=== PATIENT | male | born 1965 | race African-American/Black ===

== ENCOUNTER 2017-09-19 23:31 | Emergency (ER) | payer OTHER ==
[~2017-09-19] VITALS: Ht 170.2 cm; Wt 83.9 kg
[~2017-09-19 23:31] MED LIST: BACTRIM DS TAB1 EAC1 ORAL; BENADRYL25 MG PO; EPIPEN0.3 MG/0.3 IM; PEPCID40 MG PO; PREDNISONE20 MG ORAL
[2017-09-20 00:03] VITALS: BP 135/84
[2017-09-20] MEDS ORDERED: Bacitracin Oint UD TOPIC ONE ×2 (00:36→00:45)
[2017-09-20] MEDS ORDERED: Bactrim-DS 1 tab ORAL ONE (00:45)
[2017-09-20 01:00] VITALS: BP 130/82
[2017-09-20] MEDS ORDERED: DOXYCYCLINE MO100 MG ORAL (01:01)
--- NOTE | 2017-09-20 01:02 | Emergency Room Report ---
History of Present Illness General Chief Complaint: General Complaint Source: Patient Present Illness [facility] This is a 51-year-old male with a history diabetes and chronic pain from a previous fall. He presents with a wound to his right donaldson this been there for about 2 months. On and off his been draining pus. He spoke with his brother who is a doctor who told to go to the ER because he could lose his leg. Patient has no pain. No nausea no vomiting. No fever or chills. Allergies: Coded Allergies: NO KNOWN DRUG ALLERGIES (Unverified Allergy, Unknown, 01/01/15) Patient History Past Medical History: see triage record, old chart reviewed Past Surgical History: other Pertinent Family History: none Social History: Denies: smoking Immunizations: other Reviewed Nursing Documentation: PMH: Agreed, PSxH: Agreed Nursing Documentation-PMH Hx Hypertension: Yes Review of Systems Eye: Denies: eye pain, blurred vision ENT: Denies: ear pain, nose congestion, throat swelling Respiratory: Denies: cough, shortness of breath Cardiovascular: Denies: chest pain, palpitations Gastrointestinal: Denies: abdominal pain, diarrhea, nausea, vomiting Musculoskeletal: Denies: back pain, joint pain Skin: Denies: rash Neurological: Denies: headache, numbness Endocrine: Denies: increased thirst, increased urine Hematologic/Lymphatic: Denies: easy bruising All Other Systems: negative except mentioned in HPI Physical Exam Vital Signs Date Time Temp Pulse Resp B/P (MAP) Pulse Ox O2 Delivery O2 Flow Rate FiO2 09/19/17 23:40 98.2 101 20 141/86 99 Room Air 98.2 vitals normal Sp02 EP Interpretation: reviewed, normal General Appearance: well appearing, no apparent distress, alert Head: normocephalic, atraumatic Eyes: bilateral eye PERRL, bilateral eye EOMI ENT: hearing grossly normal, normal pharynx Neck: full range of motion, supple, no meningismus Respiratory: chest non-tender, lungs clear, normal breath sounds Cardiovascular #1: regular rate, rhythm, no murmur Gastrointestinal: normal bowel sounds, non tender, no mass, no organomegaly, no bruit, non-distended Musculoskeletal: back normal, gait/station normal, normal range of motion, other - Right lower extremity: Over the mid tibial region, there is an eschar measuring about 3 x 3 cm. Push on it there small amount of purulent discharge. No crepitance around the leg. No pain. No fever or chills. Neurologic: alert, oriented x3 Psychiatric: mood/affect normal Skin: warm/dry Procedures Incision and Drainage Incision and Drainage : Consent: Verbal Site: Right leg Blade Size: 11 I & D Procedure: betadine prep Anesthesia: 1% Lidocaine Volume Anesthetic (ccs): 5 Patient Tolerated: Well Complications: None Progress I cleaned with Betadine and then chlorhexidine. Local anesthetic 1% lidocaine around the wound. Using a Angelica forcep I lifted the eschar. He has good nice pinkish granulation tissue. On the lateral aspect a small amount of pus. I irrigated clean it. We'll address. Patient tolerated procedure without a problem. Medical Decision Making Diagnostic Impression: Primary Impression: Abscess ER Course Patient with ulceration to the right leg with secondary infection. This occurred 2 months ago when he bumped it. No evidence of deep infection. No evidence of necrotizing fasciitis. We'll discharge home with antibiotics Last Vital Signs Date Time Temp Pulse Resp B/P (MAP) Pulse Ox O2 Delivery O2 Flow Rate FiO2 09/20/17 00:03 98.1 78 19 135/84 98 Room Air 98.1 Status: improved Disposition: HOME, SELF-CARE Condition: Stable Scripts Doxycycline Monohydrate* (DOXYCYCLINE MONOHYDRATE*) 100 Mg Capsule 100 MG ORAL Q12H, #14 CAP 0 Refills Prov: GAVIOTA JORDAN M.D. 09/20/17 Additional Instructions: Followup your Dr. in 2-3 days for wound check. Return if symptom worsen. Keep Wound clean. GAVIOTA JORDAN M.D. Sep 20, 2017 01:02
[2017-09-20 01:05] VITALS: BP 130/82
== END 2017-09-20 01:05 | disposition home or self-care (01) ==
LOC: EMR 23:55
DX: L02.415 Cutaneous abscess of right lower limb (principal); I10 Essential (primary) hypertension
CPT/HCPCS: 10060; 87070; 87181; 87205; 99284

== ENCOUNTER → 2017-09-24 | Emergency (ER) | payer OTHER ==
[~2017-09-24] VITALS: Ht 162.6 cm; Wt 81.6 kg
[~2017-09-24] MED LIST changes: +ATORVASTATIN CA20 MG ORAL; +B/P med; +BACTRIM-DS1 EA ORAL; +CEPHALEXIN500 MG ORAL; +DOXYCYCLINE MO100 MG ORAL; +GABAPENTIN300 MG ORAL; +GLIMEPIRIDE4 MG ORAL; +METFORMIN HCL500 M1 ORAL; +ROXICODONE15 MG ORAL
[2017-09-24 21:55] VITALS: BP 152/88
[2017-09-24 22:07] VITALS: BP 152/88
== END | disposition left against medical advice (07) ==
LOC: EMR 22:04
DX: L02.415 Cutaneous abscess of right lower limb (principal); Z53.21 Procedure and treatment not carried out due to patient leaving prior to being seen by health care provider
CPT/HCPCS: 99281

== ENCOUNTER 2017-09-25 01:07 | Inpatient (IN) | payer OTHER ==
[~2017-09-25] VITALS: Ht 167.6 cm; Wt 81.6 kg
[~2017-09-25 01:07] MED LIST changes: -ATORVASTATIN CA20 MG ORAL; -B/P med; -BACTRIM-DS1 EA ORAL; -CEPHALEXIN500 MG ORAL; -GABAPENTIN300 MG ORAL; -GLIMEPIRIDE4 MG ORAL; -METFORMIN HCL500 M1 ORAL; -ROXICODONE15 MG ORAL
[2017-09-25 01:15] VITALS: BP 152/94
[2017-09-25] MEDS ORDERED: ROXICODONE15 MG ORAL (01:18)
[2017-09-25] MEDS ORDERED: GABAPENTIN300 MG ORAL (01:18)
[2017-09-25] MEDS ORDERED: ATORVASTATIN CA20 MG ORAL (01:18)
[2017-09-25] MEDS ORDERED: GLIMEPIRIDE4 MG ORAL (01:18)
[2017-09-25] MEDS ORDERED: METFORMIN HCL500 M1 ORAL (01:18)
[2017-09-25] MEDS ORDERED: cefTRIAXone 1 GM in NS 55 ML IVPB ONE (01:30)
[2017-09-25] MEDS ORDERED: Vancomycin 1.5gm/D5W 250ml 250 ML IVPB ONE (01:30)
--- NOTE | 2017-09-25 01:32 | Emergency Room Report ---
History of Present Illness General Chief Complaint: Skin Rash/Abscess Source: Patient Present Illness HPI 51-year-old male, history of diabetes, presenting with left leg pain and ulceration. Patient states that he hit it a week ago, started to have ulceration, redness. States that it was worse the last 3 days. States that he was seen in the emergency room, discharged with antibiotics, he has taken 2 days worth of antibiotics, but redness only seems to be getting worse. Denies any fever or chills no nausea vomiting diarrhea Allergies: Coded Allergies: NO KNOWN DRUG ALLERGIES (Unverified Allergy, Unknown, 01/01/15) Patient History Past Medical History: see triage record Past Surgical History: none Pertinent Family History: none Reviewed Nursing Documentation: PMH: Agreed, PSxH: Agreed Nursing Documentation-PMH Hx Hypertension: Yes Hx Diabetes: Yes Review of Systems All Other Systems: negative except mentioned in HPI Physical Exam Vital Signs Date Time Temp Pulse Resp B/P (MAP) Pulse Ox O2 Delivery O2 Flow Rate FiO2 09/25/17 01:12 97.8 110 18 152/94 98 Room Air 97.9 Sp02 EP Interpretation: reviewed, normal General Appearance: alert, GCS 15, non-toxic, mild distress Head: normocephalic, atraumatic Eyes: bilateral eye normal inspection, bilateral eye PERRL, bilateral eye EOMI ENT: normal ENT inspection, normal pharynx, normal voice, moist mucus membranes Neck: normal inspection, full range of motion, supple Respiratory: normal inspection, lungs clear, normal breath sounds, no respiratory distress, no retraction, no wheezing, speaking full sentences, chest symmetrical Cardiovascular #1: normal inspection, regular rate, rhythm, no edema, normal capillary refill Cardiovascular #2: 2+ radial (R), 2+ radial (L) Gastrointestinal: normal inspection, non tender, soft, non-distended, no guarding Genitourinary: no CVA tenderness Musculoskeletal: other - R anterior tib-fib with 3 x 3 cm ulceration, surrounded with 5 cm of erythema, tender to palpation, no crepitus noted Neurologic: normal inspection, alert, oriented x3, responsive, motor strength/ tone normal, sensory intact, normal gait, speech normal Psychiatric: normal inspection, judgement/insight normal, memory normal Skin: normal inspection, normal color, no rash, warm/dry, well hydrated, normal turgor Medical Decision Making Diagnostic Impression: Primary Impression: Cellulitis of right leg Additional Impression: Hyperglycemia ER Course 51-year-old male with left leg redness DDX: Cellulitis , failed outpatient treatment No crepitus / pain out of proportion / rapid spreading for concern for nec fasc Plan: Labs, Antibiotics Anticipate admission ER course: Patient received antibiotics for Cellulitis. Hyperglycemia not in DKA received IVF Disposition: Patient is to be admitted to [facility] Discussed with Dr Nicholson Please note that this Emergency Department Report was dictated using [employer] repairer technology software, occasionally this can lead to erroneous entry secondary to interpretation by the dictation equipment. EKG Diagnostic Results EP Interpretation: Yes Rate: normal Rhythm: NSR ST Segments: No acute changes ASA given to patient: No Laboratory Tests Test 09/25/17 01:20 09/25/17 02:00 White Blood Count 9.1 K/UL (4.8-10.8) Red Blood Count 5.46 M/UL (4.70-6.10) Hemoglobin 16.8 G/DL (14.2-18.0) Hematocrit 47.8 % (42.0-52.0) Mean Corpuscular Volume 87 FL (80-99) Mean Corpuscular Hemoglobin 30.8 PG (27.0-31.0) Mean Corpuscular Hemoglobin Concent 35.2 G/DL (32.0-36.0) Red Cell Distribution Width 12.3 % (11.6-14.8) Platelet Count 213 K/UL (150-450) Mean Platelet Volume 8.2 FL (6.5-10.1) Neutrophils (%) (Auto) 61.3 % (45.0-75.0) Lymphocytes (%) (Auto) 31.8 % (20.0-45.0) Monocytes (%) (Auto) 3.8 % (1.0-10.0) Eosinophils (%) (Auto) 2.1 % (0.0-3.0) Basophils (%) (Auto) 1.1 % (0.0-2.0) Sodium Level 133 MMOL/L (136-145) L Potassium Level 3.5 MMOL/L (3.5-5.1) Chloride Level 94 MMOL/L (98-107) L Carbon Dioxide Level 28 MMOL/L (21-32) Anion Gap 11 mmol/L (5-15) Blood Urea Nitrogen 8 mg/dL (7-18) Creatinine 1.0 MG/DL (0.55-1.30) Estimate Glomerular Filtration Rate > 60 mL/min (>60) Glucose Level 429 MG/DL (74-106) H Lactic Acid Level 3.70 mmol/L (0.66-2.22) H Calcium Level 9.6 MG/DL (8.5-10.1) Total Bilirubin 0.5 MG/DL (0.2-1.0) Aspartate Amino Transferase (AST) 21 U/L (15-37) Alanine Aminotransferase (ALT) 53 U/L (12-78) Alkaline Phosphatase 118 U/L (46-116) H Total Protein 8.3 G/DL (6.4-8.2) H Albumin 3.9 G/DL (3.4-5.0) Globulin 4.4 g/dL Albumin/Globulin Ratio 0.9 (1.0-2.7) L Urine Color Pale yellow Urine Appearance Clear Urine pH 5 (4.5-8.0) Urine Specific [place] 1.010 (1.005-1.035) Urine Protein Negative (NEGATIVE) Urine Glucose (UA) 4+ (NEGATIVE) H Urine Ketones Negative (NEGATIVE) Urine Occult Blood Negative (NEGATIVE) Urine Nitrite Negative (NEGATIVE) Urine Bilirubin Negative (NEGATIVE) Urine Urobilinogen Normal MG/DL (0.0-1.0) Urine Leukocyte Esterase Negative (NEGATIVE) Last Vital Signs Date Time Temp Pulse Resp B/P (MAP) Pulse Ox O2 Delivery O2 Flow Rate FiO2 09/25/17 01:12 97.8 110 18 152/94 98 Room Air 97.9 Disposition: ADMITTED INPATIENT Condition: Chato Villarreal M.D. Sep 25, 2017 01:32
[2017-09-25 01:52] LABS: BASOPHILS % (AUTO) 1.1 % (0.0-2.0); EOSINOPHILS % (AUTO) 2.1 % (0.0-3.0); HEMATOCRIT 47.8 % (42.0-52.0); HEMOGLOBIN 16.8 G/DL (14.2-18.0); LYMPHOCYTES % (AUTO) 31.8 % (20.0-45.0); MEAN CORPUSCULAR VOLUME 87 FL (80-99); MONOCYTES % (AUTO) 3.8 % (1.0-10.0); NEUTROPHILS % (AUTO) 61.3 % (45.0-75.0); PLATELET COUNT 213 K/UL (150-450); RED BLOOD COUNT 5.46 M/UL (4.70-6.10); RED CELL DISTRIBUTION WIDTH 12.3 % (11.6-14.8); WHITE BLOOD COUNT 9.1 K/UL (4.8-10.8)
[2017-09-25 02:00] LABS: ANION GAP 11 mmol/L (5-15); BLOOD UREA NITROGEN 8 mg/dL (7-18); CALCIUM 9.6 MG/DL (8.5-10.1); CARBON DIOXIDE 28 MMOL/L (21-32); CHLORIDE 94 MMOL/L (98-107); POTASSIUM 3.5 MMOL/L (3.5-5.1); SODIUM 133 MMOL/L (136-145)
[2017-09-25 02:05] LABS: ALANINE AMINOTRANSFERASE 53 U/L (12-78); ALBUMIN 3.9 G/DL (3.4-5.0); ALBUMIN/GLOBULIN RATIO 0.9 (1.0-2.7); ALKALINE PHOSPHATASE 118 U/L (46-116); ASPARTATE AMINO TRANSFERASE 21 U/L (15-37); BILIRUBIN,TOTAL 0.5 MG/DL (0.2-1.0)
[2017-09-25 02:17] LABS: APPEARANCE,URINE CLEAR; BILIRUBIN, URINE NEGATIVE (NEGATIVE); COLOR,URINE PALE YELLOW; GLUCOSE, URINE (UA) 4+ (NEGATIVE); KETONES,URINE NEGATIVE (NEGATIVE); LEUKOCYTE ESTERASE ,URINE NEGATIVE (NEGATIVE); NITRITE,URINE NEGATIVE (NEGATIVE); PH,URINE 5 (4.5-8.0); PROTEIN,URINE NEGATIVE (NEGATIVE); UROBILINOGEN,URINE NORMAL MG/DL (0.0-1.0)
[2017-09-25 03:20] VITALS: BP 136/83
[2017-09-25 04:42] VITALS: BP 164/92
[2017-09-25] MEDS ORDERED: B/P med (05:55)
[2017-09-25] MEDS ORDERED: oxyCODONE 15mg IR tab ORAL PRN (06:00)
[2017-09-25] MEDS ORDERED: Ampicillin/Sulbactam Sod 3 GM in NS 110 ML IVPB SCH (06:00)
[2017-09-25] MEDS: NovoLOG Insulin Flexpen SUBQ SCH ×3 (06:30→16:30)
[2017-09-25 08:00] VITALS: BP 128/82
[2017-09-25 08:13] LABS: CHOLESTEROL 221 MG/DL (< 200); HDL CHOLESTEROL 37 MG/DL (40-60); TRIGLYCERIDES 177 MG/DL (30-150)
[2017-09-25] MEDS: Heparin 5000 units/ml inj SUBQ SCH ×2 (09:00→09:05)
[2017-09-25] MEDS ORDERED: metFORMIN 500mg tab ORAL SCH (09:00)
[2017-09-25] MEDS ORDERED: Metoprolol 25mg tab ORAL SCH (09:00)
[2017-09-25] MEDS: Ampicillin/Sulbactam Sod 3 GM in NS 110 ML IVPB SCH ×2 (09:03→15:37)
--- NOTE | 2017-09-25 10:21 | Diagnostic Imaging Report ---
Indication: Chest pain Technique: One view of the chest Comparison: none Findings: Lungs and pleural spaces are clear. Heart size is normal. Impression: No acute process
--- NOTE | 2017-09-25 10:37 | History & Physical ---
History and Physical History & Physicial seen and examined. Dictated # ##[id number] Sheila Nicholson MD Sep 25, 2017 10:37
--- NOTE | 2017-09-25 10:41 | General Progress Note ---
Assessment/Plan Status: stable Assessment/Plan 1- R LE cellulitis 2- SIRS 3- Chronic pain 4- DM 5- Non compliance Plan: Ok medically to followup as o/p to optimse medication for Diabetes. Pending ID clearance Subjective ROS Limited/Unobtainable: No Constitutional: Reports: malaise, other - back pain Allergies: Coded Allergies: NO KNOWN DRUG ALLERGIES (Unverified Allergy, Unknown, 01/01/15) Objective Last 24 Hour Vital Signs Date Time Temp Pulse Resp B/P (MAP) Pulse Ox O2 Delivery O2 Flow Rate FiO2 09/25/17 09:04 91 128/82 09/25/17 08:00 97.1 91 19 128/82 95 97.1 09/25/17 04:42 98.2 87 20 164/92 97 98.2 09/25/17 04:40 Room Air 09/25/17 03:55 97.4 87 16 136/83 97 Room Air 97.4 09/25/17 03:20 97.4 87 16 136/83 97 Room Air 97.4 09/25/17 01:15 97.9 110 18 152/94 98 Room Air 97.9 09/25/17 01:12 97.8 110 18 152/94 98 Room Air 97.9 Intake and Output 09/24/17 09/25/17 19:00 07:00 Intake Total 295 ml Output Total 250 ml Balance 45 ml Intake Oral 240 ml IV Total 55 ml Output Urine Total 250 ml # Voids 2 Laboratory Tests 09/25/17 01:20: White Blood Count 9.1, Red Blood Count 5.46, Hemoglobin 16.8, Hematocrit 47.8, Mean Corpuscular Volume 87, Mean Corpuscular Hemoglobin 30.8, Mean Corpuscular Hemoglobin Concent 35.2, Red Cell Distribution Width 12.3, Platelet Count 213, Mean Platelet Volume 8.2, Neutrophils (%) (Auto) 61.3, Lymphocytes (%) (Auto) 31.8, Monocytes (%) (Auto) 3.8, Eosinophils (%) (Auto) 2.1, Basophils (%) (Auto ) 1.1, Sodium Level 133L, Potassium Level 3.5, Chloride Level 94L, Carbon Dioxide Level 28, Anion Gap 11, Blood Urea Nitrogen 8, Creatinine 1.0, Estimat Glomerular Filtration Rate > 60, Glucose Level 429H, Hemoglobin A1c 9.9H, Lactic Acid Level 3.70H, Calcium Level 9.6, Total Bilirubin 0.5, Aspartate Amino Transf (AST/SGOT) 21, Alanine Aminotransferase (ALT/SGPT) 53, Alkaline Phosphatase 118H, Total Protein 8.3H, Albumin 3.9, Globulin 4.4, Albumin/ Globulin Ratio 0.9L, Triglycerides Level 177H, Cholesterol Level 221H, LDL Cholesterol 160H, HDL Cholesterol 37L, Cholesterol/HDL Ratio 6.0H 09/25/17 02:00: Urine Color Pale yellow, Urine Appearance Clear, Urine pH 5, Urine Specific [place] 1.010, Urine Protein Negative, Urine Glucose (UA) 4+H, Urine Ketones Negative, Urine Occult Blood Negative, Urine Nitrite Negative, Urine Bilirubin Negative, Urine Urobilinogen Normal, Urine Leukocyte Esterase Negative 09/25/17 03:40: Lactic Acid Level 2.20 Height (Feet): 5 Height (Inches): 6.00 Weight (Pounds): 180 General Appearance: no apparent distress EENT: PERRL/EOMI Neck: supple Cardiovascular: normal rate Respiratory/Chest: lungs clear Abdomen: soft Extremities: other - RLE 1-2 plus 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
--- NOTE | 2017-09-25 10:59 | Consultation ---
Consult Note Consult Note ID DIC # [id number] NADEEM CARPIO M.D. Sep 25, 2017 10:59
[2017-09-25 11:48] VITALS: BP 136/83
[2017-09-25] MEDS ORDERED: Vancomycin 1.5 GM/D5W 250ML IVPB SCH (13:30)
[2017-09-25 15:50] VITALS: BP 148/85
[2017-09-25] MEDS ORDERED: BACTRIM-DS1 EA ORAL (17:13)
[2017-09-25] MEDS ORDERED: CEPHALEXIN500 MG ORAL (17:14)
--- NOTE | 2017-09-25 18:32 | History and Physical Report ---
DATE OF ADMISSION: 09/25/2017 SOURCE OF INFORMATION: Patient and EMR. HISTORY OF PRESENT ILLNESS: The patient is a 51-year-old male with a history of right leg cellulitis, chronic pain. The patient is status post hospitalization and discharge last week with a similar diagnosis. At the time of evaluation, the patient denies any fever or chills. The patient complains of increased swelling of the right lower extremity. Initial evaluation shows the patient is tachycardic with a normal WBC count. The patient denies any chest pain or shortness of breath. Denies any nausea or vomitus. Denies any severe pain. The patient reported that he has been taking narcotics as an outpatient. MEDICATIONS: Current hospital medications including, but not limited to, atorvastatin, doxycycline, famotidine, gabapentin, glimepiride, metformin, oxycodone, and prednisone. ALLERGIES: NKDA. FAMILY HISTORY: Reviewed and noncontributory. SOCIAL HISTORY: Positive for tobacco smoking at least for 42-axjc-pfo-year. However, denies history of illicit drug abuse or alcohol abuse. PHYSICAL EXAMINATION: VITAL SIGNS: Blood pressure 150/90, temperature 98.2, pulse oximetry 98% on room air, pulse rate 110, and respiratory rate 18. HEAD AND NECK: Atraumatic and normocephalic. CHEST: Clear to auscultation. HEART: S1 and S2. Regular rate and rhythm. ABDOMEN: Soft. No organomegaly. MUSCULOSKELETAL: Positive for 1+ to 2+ pitting edema in the right lower extremity. Minimal edema and warmness. NEUROLOGIC: The patient is awake, alert, and oriented x3. LABORATORY DATA: Labs dated 09/25/2017 shows WBC 9.1, hemoglobin 16.8, and platelets 213,000. Sodium 133, potassium 3.5, BUN 8, and creatinine 1. A1c 9.9. Liver function tests normal. LDL of 160. ASSESSMENT AND PLAN: 1. Systemic inflammatory response syndrome. 2. Right lower extremity cellulitis. 3. Diabetes type 2, uncontrolled. 4. Noncompliance with medication as the patient refuses taking any medication to control diabetes as an injection. 5. Hyperlipidemia. 6. Hypokalemia. 7. Hyponatremia. PLAN OF CARE: Infectious Disease consulted. We will continue with the empiric antibiotic regimen. The patient is advised regarding the potential complication of not taking the medications including but not limited to . However, he understood and still would not like to take any insulin medications. Sheila Nicholson M.D. DR: MARIA ELENA JOB#: [id number] CC:
--- NOTE | 2017-09-25 20:32 | Consultation ---
DATE OF CONSULTATION: 09/25/2017 INFECTIOUS DISEASES CONSULTATION CONSULTING PHYSICIAN: Pavan Priest M.D. REFERRING PHYSICIAN: Sheila Nicholson M.D. REASON FOR CONSULTATION: Evaluation of the patient for lower extremity cellulitis/wound infection, antibiotic management. HISTORY OF PRESENT ILLNESS: This is a 51-year-old male who came to the hospital due to pain and swelling of the left leg after the patient bumped his leg about a week ago and some ulcerations that resulted in some purulent discharge couple of days later. The patient was seen in the emergency room. Cultures were sent. It is growing coagulase-negative Staph and strep group B. The patient was given oral antibiotics, however, the patient did not improve and came to the hospital. The patient was started on IV antibiotics. Infectious Diseases consultation has been requested for further evaluation of the patient's antibiotic management. PAST MEDICAL HISTORY: 1. Hyperlipidemia. 2. Hypertension. 3. History of back injury and back pain. 4. Diabetes. MEDICATIONS: Unasyn and vancomycin. ALLERGIES: No known drug allergies. SOCIAL HISTORY: Negative for alcohol or drug abuse. The patient is smoker. FAMILY HISTORY: Not contributing. REVIEW OF SYSTEMS: A 10-point review was done and except what is mentioned above has been negative. PHYSICAL EXAMINATION: VITAL SIGNS: The patient is afebrile, blood pressure 136/83, pulse 84, and respiratory rate 18. HEENT: No pale conjunctivae. No icterus. NECK: No lymphadenopathy. CHEST: Clear. HEART: S1 and S2. ABDOMEN: Soft. EXTREMITIES: Left, the patient has ulceration above and mid leg. No significant purulent discharge. There is mild erythema around the margin of the ulcers. NEUROLOGIC: Awake and alert. SKIN: As mentioned above. LABORATORY AND DIAGNOSTIC DATA: White blood cell count on admission 14 and today is 9, hemoglobin 16 and platelets 213. UA unremarkable. BUN and creatinine are unremarkable. ALT and AST normal and alkaline phosphatase 118. X-ray of chest NAPD. Doppler of lower extremity, no DVT. ASSESSMENT: The patient is a 51-year-old male with left leg superficial abscess that has been drained with surrounding cellulitis. PLAN: The patient can be discharged on oral Keflex and Bactrim. The patient was given a week's recourse of above antibiotics. Thank you, Dr. Nicholson, for this consultation. From my standpoint, the patient can get discharge. Pavan Priest M.D. DR: LISA JOB#: [id number] CC:
--- NOTE | 2017-09-26 15:34 | Discharge Summary ---
Discharge Summary Hospital Course Date of Admission Sep 25, 2017 at 01:52 Date of Discharge Sep 25, 2017 at 18:00 Admitting Diagnosis cellulitis JASON Davies is a 51 year old male who was admitted on Sep 25, 2017 at 01:52 for Cellulitis Hospital Course [id number] Discharge Discharge Disposition Patient was discharged to Home (01) Discharge Diagnoses: Mariela Charles NP Sep 26, 2017 15:33
--- NOTE | 2017-09-27 02:30 | Discharge Summary 2 SIG ---
DATE OF ADMISSION: 09/25/2017 DATE OF DISCHARGE: 09/25/2017 AIR TOOL OPERATOR: Pavan Priest M.D. BRIEF HOSPITAL COURSE: The patient is a 51-year-old male with history of right leg cellulitis and chronic pain. The patient was status post hospitalization and was discharged last week with similar diagnosis. At the time of evaluation, the patient denied fever or chills and complained of increased swelling of the right lower extremity. Initial evaluation showed the patient was tachycardic with normal WBC count. Denied any chest pain or shortness of breath. The patient was admitted for right lower extremity cellulitis. The patient has type 2 diabetes, uncontrolled and admits to noncompliance with medication and refuses to take his injectables. He was seen by Dr. Priest. Culture was growing coagulase-negative staph and group B strep. Doppler of lower extremity was negative for DVT. The patient was cleared for discharge on p.o. antibiotics, Keflex and Bactrim. FINAL DIAGNOSES: 1. Cellulitis of left leg. 2. SIRS. 3. Diabetes, type 2, uncontrolled. 4. Noncompliance with medication. 5. Hyperlipidemia. 6. Hypokalemia. 7. Hyponatremia. DISPOSITION: The patient was discharged home. DISCHARGE MEDICATIONS: Refer to medication list. DISCHARGE INSTRUCTIONS: The patient was instructed on wound care and follow up with PCP in a week. Sheila Nicholson M.D. I have been assigned to dictate discharge summary on this account and I was not involved in the patient's management. Mariela Charles N.P. DR: ROSSANA JOB#: [id number] CC:
--- NOTE | 2017-09-28 15:37 | Cardiology Report ---
APPROVED REPORT EKG Measurement Heart [id number] Sinus tachycardia Left anterior fascicular block Septal infarct, age undetermined Cannot rule out Inferior infarct, age undetermined Abnormal ECG
--- NOTE | 2017-10-01 13:06 | Diagnostic Imaging Report ---
APPROVED REPORT CPT Code: 50621 Present Symptoms Comments: R/O DVT Right leg pain BILATERAL: Imaging reveals a patent deep venous system bilaterally. There is no evidence of thrombus within the femoral, popliteal or tibial segments. The greater saphenous veins are also within normal limits. Doppler indicates normal spontaneous flow within these segments.
== END 2017-09-25 18:00 | disposition home or self-care (01) | DRG 603 ==
LOC: EMR 01:34 → 4W 01:52 → EDBEDREQ 02:51
DX: L03.116 Cellulitis of left lower limb (principal); R65.10 Systemic inflammatory response syndrome (SIRS) of non-infectious origin without acute organ dysfunction; E87.1 Hypo-osmolality and hyponatremia; E11.65 Type 2 diabetes mellitus with hyperglycemia; Z91.14 Patient's other noncompliance with medication regimen; E78.5 Hyperlipidemia, unspecified; E87.6 Hypokalemia; Z79.84 Long term (current) use of oral hypoglycemic drugs; F17.200 Nicotine dependence, unspecified, uncomplicated; G89.29 Other chronic pain; M54.9 Dorsalgia, unspecified; Z88.1 Allergy status to other antibiotic agents; Z88.8 Allergy status to other drugs, medicaments and biological substances
CPT/HCPCS: 36415; 71045; 80053; 80061; 81003; 82962; 83036; 83605; 85025; 87040; 87070; 87081; 87181; 87205; 93005; 93970; 99285; J1815

== ENCOUNTER 2017-11-12 00:37 | Emergency (ER) | payer OTHER ==
[~2017-11-12] VITALS: Ht 170.2 cm; Wt 86.2 kg
[~2017-11-12 00:37] MED LIST changes: +ATORVASTATIN CA20 MG ORAL; +B/P med; +BACTRIM-DS1 EA ORAL; +CEPHALEXIN500 MG ORAL; +GABAPENTIN300 MG ORAL; +GLIMEPIRIDE4 MG ORAL; +METFORMIN HCL500 M1 ORAL; +ROXICODONE15 MG ORAL
[2017-11-12 00:45] VITALS: BP 146/84
[2017-11-12] MEDS ORDERED: Levofloxacin 500mg tab ORAL ONE (01:45)
[2017-11-12] MEDS ORDERED: LEVAQUIN500 MG ORAL (01:52)
--- NOTE | 2017-11-12 01:52 | Emergency Room Report ---
History of Present Illness General Chief Complaint: Skin Rash/Abscess Source: Patient Present Illness HPI This is a 52-year-old male with history of diabetes and high blood pressure. He had an ulcer with infection to his right tibial area for over a month now. He was treated with antibiotics at better now he has some redness and swelling. No drainage. No fever chills but no nausea no vomiting. Pain with palpation. Allergies: Coded Allergies: NO KNOWN DRUG ALLERGIES (Unverified Allergy, Unknown, 01/01/15) Patient History Past Medical History: see triage record, old chart reviewed, DM, HTN Past Surgical History: other Pertinent Family History: none Social History: Denies: smoking Immunizations: other Reviewed Nursing Documentation: PMH: Agreed; PSxH: Agreed Nursing Documentation-PMH Hx Cardiac Problems: Yes Hx Hypertension: Yes Hx Diabetes: Yes Review of Systems Eye: Denies: eye pain, blurred vision ENT: Denies: ear pain, nose congestion, throat swelling Respiratory: Denies: cough, shortness of breath Cardiovascular: Denies: chest pain, palpitations Gastrointestinal: Denies: abdominal pain, diarrhea, nausea, vomiting Musculoskeletal: Denies: back pain, joint pain Skin: Denies: rash Neurological: Denies: headache, numbness Endocrine: Denies: increased thirst, increased urine Hematologic/Lymphatic: Denies: easy bruising All Other Systems: negative except mentioned in HPI Physical Exam Vital Signs Date Time Temp Pulse Resp B/P (MAP) Pulse Ox O2 Delivery O2 Flow Rate FiO2 11/12/17 00:39 98.2 97 18 146/84 97 Room Air 98.2 vitals normal Sp02 EP Interpretation: reviewed, normal General Appearance: well appearing, no apparent distress, alert Head: normocephalic, atraumatic Eyes: bilateral eye PERRL, bilateral eye EOMI ENT: hearing grossly normal, normal pharynx Neck: full range of motion, supple, no meningismus Respiratory: chest non-tender, lungs clear, normal breath sounds Cardiovascular #1: regular rate, rhythm, no murmur Gastrointestinal: normal bowel sounds, non tender, no mass, no organomegaly, no bruit, non-distended Musculoskeletal: back normal, gait/station normal, normal range of motion, other - right lower leg: There is a 6 x 8 cm wound with eschar. There is surrounding erythema. There is no purulent discharge. Neurologic: alert, oriented x3 Psychiatric: mood/affect normal Skin: warm/dry Procedures Additional Procedure Procedure Narrative procedure: Wound debridement Indication: Leg ulcer, infected Description: I cleaned the area with and put a dressing with saline and hydrogen peroxide over His wound. Using a scalpel and medicinal plant picker, I remove the eschar and debris the necrotic tissue down to pain granulation tissue. Patient tolerated procedure without a problem. Medical Decision Making Diagnostic Impression: Primary Impression: Infected stasis ulcer of right lower extremity ER Course Patient with cellulitis from an infective ulcer from trauma that he bumped couple months ago. I debridement that and necrotic tissue. We'll treat with antibiotics. He grew out strep from the wound. No evidence of abscess that can be I and D. No necrotizing fasciitis. Last Vital Signs Date Time Temp Pulse Resp B/P (MAP) Pulse Ox O2 Delivery O2 Flow Rate FiO2 11/12/17 00:39 98.2 97 18 146/84 97 Room Air 98.2 Status: improved Disposition: HOME, SELF-CARE Condition: Stable Scripts Levofloxacin* (LEVAQUIN*) 500 Mg Tablet 500 MG ORAL DAILY, #10 TAB Prov: GAVIOTA JORDAN M.D. 11/12/17 Additional Instructions: Follow-up with your DrNorma in 7 days for recheck. Change wound dressing twice a day. Return if worse. GAVIOTA JORDAN M.D. Nov 12, 2017 01:52
[2017-11-12 02:00] VITALS: BP 146/84
== END 2017-11-12 02:00 | disposition home or self-care (01) ==
LOC: EMR 00:59
DX: I83.228 Varicose veins of left lower extremity with both ulcer of other part of lower extremity and inflammation (principal); L97.829 Non-pressure chronic ulcer of other part of left lower leg with unspecified severity; E11.9 Type 2 diabetes mellitus without complications; I10 Essential (primary) hypertension
CPT/HCPCS: 99284

== ENCOUNTER 2019-09-28 03:35 | Inpatient (IN) | payer OTHER ==
[2019-09-28] VITALS (9 sets, daily range): BP systolic 125–180; BP diastolic 77–105
[~2019-09-28] VITALS: Ht 170.2 cm; Wt 73.5 kg
[~2019-09-28 03:35] MED LIST changes: +LEVAQUIN500 MG ORAL
--- NOTE | 2019-09-28 03:50 | NUR ---
ED Nurse Note: Pt ambulated into ED from home complaining of 10/10 abdominal pain and pain in penis. Pt reports blood in urine with clots x 3 days and black loose stools x 3 weeks. Pt reports extreme pain during urination and reports having trouble emptying bladder. Awaiting ERMD at bedside. Pt aao x 4, BP elevated 173/81, HR 115. ERMD aware
--- NOTE | 2019-09-28 04:40 | NUR ---
ED Nurse Note: ERMD at bedside
--- NOTE | 2019-09-28 04:50 | NUR ---
ED Nurse Note: ERMD performed catheterization of bladder with jo and irrigation with sterile water. ERMD performed US of bladder. 1L of hematuria removed.
[2019-09-28] MEDS ORDERED: Omnipaque-300 100ml vial INJ PRN (05:45)
--- NOTE | 2019-09-28 06:00 | NUR ---
ED Nurse Note: CT called; pending CT
--- NOTE | 2019-09-28 06:13 | Emergency Room Report ---
History of Present Illness General Chief Complaint: Male Urogenital Problems Source: Patient Present Illness HPI Patient is a 53-year-old male presents after increased gross hematuria as well as lower abdominal pain. He reports having gradual onset of increased clotting with urination. He had been able to void for several hours. Denies taking any anticoagulation. He denies any prior history of prostate disease. Had not been on any antibiotics recently. He denies any recent catheterizations. Allergies: Coded Allergies: NO KNOWN DRUG ALLERGIES (Unverified Allergy, Unknown, 01/01/15) Patient History Past Medical History: see triage record Reviewed Nursing Documentation: PMH: Agreed; PSxH: Agreed Nursing Documentation-PMH Hx Cardiac Problems: Yes Hx Hypertension: Yes Hx Diabetes: Yes Review of Systems All Other Systems: negative except mentioned in HPI Physical Exam Vital Signs Date Time Temp Pulse Resp B/P (MAP) Pulse Ox O2 Delivery O2 Flow Rate FiO2 09/28/19 03:40 98.8 125 20 162/78 (106) 97 Room Air Sp02 EP Interpretation: reviewed, normal General Appearance: normal inspection, well appearing, no apparent distress, alert, GCS 15 Head: atraumatic ENT: normal ENT inspection, hearing grossly normal, normal voice Neck: normal inspection, full range of motion, supple, no bony tend Respiratory: normal inspection, lungs clear, normal breath sounds, no respiratory distress, no retraction, no wheezing Cardiovascular #1: regular rate, rhythm, no edema Gastrointestinal: normal inspection, normal bowel sounds, non tender, soft, no guarding, no hernia Genitourinary: no CVA tenderness, penis normal, other - Suprapubic bladder distention Musculoskeletal: normal inspection, back normal, normal range of motion Neurologic: alert, motor strength/tone normal, manager community outreach III-XII nml as tested, responsive, speech normal, normal inspection Psychiatric: normal inspection, judgement/insight normal, mood/affect normal Medical Decision Making Diagnostic Impression: Primary Impression: Hematuria ER Course Patient presented for hematuria. Differential diagnosis include was not limited to bladder cancer, hemorrhagic cystitis, renal cyst, coagulopathy, anemia among others. Because of complexity of patient's case laboratory tests and imaging studies were ordered. Laboratory testing showed some evidence of elevated white blood count. Patient was noted to have large amount of clots and initial total urinary obstruction. Espinal catheter was placed and was irrigated with some improvement in urine output. Dr. Erwin May was contacted for inpatient management due to panel physician. Dr. Reyes was contacted for urology consult. Laboratory Tests Test 09/28/19 05:54 09/28/19 06:26 09/28/19 18:20 09/28/19 19:50 White Blood Count 16.9 K/UL (4.8-10.8) H Red Blood Count 4.16 M/UL (4.70-6.10) L Hemoglobin 12.2 G/DL (14.2-18.0) L Hematocrit 34.7 % (42.0-52.0) L Mean Corpuscular Volume 83 FL (80-99) Mean Corpuscular Hemoglobin 29.2 PG (27.0-31.0) Mean Corpuscular Hemoglobin Concent 35.1 G/DL (32.0-36.0) Red Cell Distribution Width 14.7 % (11.6-14.8) Platelet Count 279 K/UL (150-450) Mean Platelet Volume 7.5 FL (6.5-10.1) Neutrophils (%) (Auto) 84.7 % (45.0-75.0) H Lymphocytes (%) (Auto) 8.2 % (20.0-45.0) L Monocytes (%) (Auto) 6.5 % (1.0-10.0) Eosinophils (%) (Auto) 0.0 % (0.0-3.0) Basophils (%) (Auto) 0.6 % (0.0-2.0) Differential Total Cells Counted 100 Neutrophils % (Manual) 89 % (45-75) H Lymphocytes % (Manual) 11 % (20-45) L Monocytes % (Manual) 0 % (1-10) L Eosinophils % (Manual) 0 % (0-3) Basophils % (Manual) 0 % (0-2) Band Neutrophils 0 % (0-8) Platelet Estimate Adequate Platelet Morphology Normal Red Blood Cell Morphology Anisocytosis 1+ Prothrombin Time 12.5 SEC (9.30-11.50) H 12.9 SEC (9.30-11.50) H Prothrombin Time INR 1.2 (0.9-1.1) H 1.2 (0.9-1.1) H Activated Partial Thromboplast Time 40 SEC (23-33) H Sodium Level 143 MMOL/L (136-145) Potassium Level 3.5 MMOL/L (3.5-5.1) Chloride Level 104 MMOL/L (98-107) Carbon Dioxide Level 26 MMOL/L (21-32) Anion Gap 13 mmol/L (5-15) Blood Urea Nitrogen 8 mg/dL (7-18) Creatinine 0.7 MG/DL (0.55-1.30) Estimate Glomerular Filtration Rate > 60 mL/min (>60) Glucose Level 140 MG/DL (74-106) H Calcium Level 8.8 MG/DL (8.5-10.1) Total Bilirubin 0.4 MG/DL (0.2-1.0) Aspartate Amino Transferase (AST) 18 U/L (15-37) Alanine Aminotransferase (ALT) 21 U/L (12-78) Alkaline Phosphatase 163 U/L (46-116) H Total Protein 7.5 G/DL (6.4-8.2) Albumin 3.0 G/DL (3.4-5.0) L Globulin 4.5 g/dL Albumin/Globulin Ratio 0.7 (1.0-2.7) L Urine Color Red Urine Appearance Very cloudy Urine pH 7 (4.5-8.0) Urine Specific [place] 1.010 (1.005-1.035) Urine Protein 4+ (NEGATIVE) H Urine Glucose (UA) Negative (NEGATIVE) Urine Ketones 1+ (NEGATIVE) H Urine Blood 5+ (NEGATIVE) H Urine Nitrite Negative (NEGATIVE) Urine Bilirubin Negative (NEGATIVE) Urine Urobilinogen Normal MG/DL (0.0-1.0) Urine Leukocyte Esterase Negative (NEGATIVE) Urine RBC Tntc /HPF (0 - 0) H Urine WBC 5-10 /HPF (0 - 0) H Urine Squamous Epithelial Cells Occasional /LPF Urine Bacteria Few /HPF (NONE) Lactic Acid Level 1.30 mmol/L (0.4-2.0) Ammonia < 10 umol/L (11-32) L Reticulocyte Count 1.9 % (0.5-2.0) Iron Level 14 ug/dL (50-175) L Total Iron Binding Capacity 218 ug/dL (250-450) L Percent Iron Saturation 6 % (15-50) L Unsaturated Iron Binding 204 ug/dL (112-346) Ferritin 177 NG/ML (8-388) Carcinoembryonic Antigen Pending CA 15-3 Antigen Pending CA 19-9 Antigen Pending Prostate Specific Antigen 0.39 ng/mL (0.13-4.0) Vitamin B12 Level 446 PG/ML (193-986) Thyroid Stimulating Hormone (TSH) 0.397 uiU/mL (0.358-3.740) Last Vital Signs Date Time Temp Pulse Resp B/P (MAP) Pulse Ox O2 Delivery O2 Flow Rate FiO2 09/28/19 03:40 98.8 125 20 162/78 (106) 97 Room Air Status: improved Disposition: ADMITTED INPATIENT Condition: Stable Referrals: NON PHYSICIAN (PCP) Leighton Lobo MD Sep 28, 2019 06:13
--- NOTE | 2019-09-28 06:15 | NUR ---
ED Nurse Note: blood work and urine obtained, sent to lab
[2019-09-28 07:05] LABS: ANION GAP 13 mmol/L (5-15); BLOOD UREA NITROGEN 8 mg/dL (7-18); CALCIUM 8.8 MG/DL (8.5-10.1); CARBON DIOXIDE 26 MMOL/L (21-32); CHLORIDE 104 MMOL/L (98-107); CREATININE 0.7 MG/DL (0.55-1.30); POTASSIUM 3.5 MMOL/L (3.5-5.1); SODIUM 143 MMOL/L (136-145)
[2019-09-28 07:08] LABS: ALANINE AMINOTRANSFERASE 21 U/L (12-78); ALBUMIN/GLOBULIN RATIO 0.7 (1.0-2.7); ALKALINE PHOSPHATASE 163 U/L (46-116); ASPARTATE AMINO TRANSFERASE 18 U/L (15-37); BILIRUBIN,TOTAL 0.4 MG/DL (0.2-1.0)
--- NOTE | 2019-09-28 07:10 | NUR ---
ED Nurse Note: Report given to JUSTINO Ross
[2019-09-28 07:13] LABS: BASOPHILS % (AUTO) 0.6 % (0.0-2.0); HEMATOCRIT 34.7 % (42.0-52.0); HEMOGLOBIN 12.2 G/DL (14.2-18.0); LYMPHOCYTES % (AUTO) 8.2 % (20.0-45.0); MEAN CORPUSCULAR VOLUME 83 FL (80-99); MONOCYTES % (AUTO) 6.5 % (1.0-10.0); NEUTROPHILS % (AUTO) 84.7 % (45.0-75.0); PLATELET COUNT 279 K/UL (150-450); RED BLOOD COUNT 4.16 M/UL (4.70-6.10); RED CELL DISTRIBUTION WIDTH 14.7 % (11.6-14.8); WHITE BLOOD COUNT 16.9 K/UL (4.8-10.8)
--- NOTE | 2019-09-28 07:15 | NUR ---
ED Nurse Note: Received pt on bed, VSS except elevated SBP of 179; NAD. Noted pt on going continuous bladder irrigation; collected 1000ml of reddish-like urine. Charge nurse at bedside.
[2019-09-28 07:26] LABS: INR 1.2 (0.9-1.1)
--- NOTE | 2019-09-28 07:28 | NUR ---
ED Nurse Note: Pt went on CT, on stable condition; accompanied by tech; bladder irrigation still on-going.
[2019-09-28 07:32] LABS: APPEARANCE,URINE VERY CLOUDY; BILIRUBIN, URINE NEGATIVE (NEGATIVE); COLOR,URINE RED; GLUCOSE, URINE (UA) NEGATIVE (NEGATIVE); KETONES,URINE 1+ (NEGATIVE); LEUKOCYTE ESTERASE ,URINE NEGATIVE (NEGATIVE); NITRITE,URINE NEGATIVE (NEGATIVE); PH,URINE 7 (4.5-8.0); PROTEIN,URINE 4+ (NEGATIVE); UROBILINOGEN,URINE NORMAL MG/DL (0.0-1.0)
--- NOTE | 2019-09-28 09:04 | Diagnostic Imaging Report ---
INDICATION: Abdominal pain TECHNIQUE: Continuous helical transaxial imaging of the abdomen and pelvis was obtained from the lung bases to the pubic symphysis during intravenous contrast administration. Coronal 2-D reformats were also obtained. Study obtained in a Siemens sensation [address] Automatic Exposure Control was utilized. Total Dose length Product (DLP): [address] Dose Index Volume (CTDIvol): 86.5 mGy COMPARISON: None FINDINGS: Lungs: Mild groundglass opacities are present at the lung bases nonspecific.. Liver: Unremarkable Gallbladder/biliary system: No gallstones are identified. There is no evidence of intrahepatic or extrahepatic biliary ductal dilatation. Spleen: Unremarkable Pancreas: Unremarkable Kidneys/Bladder: The left kidney is abnormal with heterogeneous enhancement and perinephric stranding. Findings are suspicious for pyelonephritis/bacterial nephritis. There is no hydronephrosis or evidence of nephrolithiasis. Small lymph nodes are seen in the retroperitoneum nonspecific.. The bladder is moderately distended. Espinal catheter is noted in good position. There is some thickening of the wall the bladder noted. Correlate for cystitis. Adrenal glands: Unremarkable Aorta/IVC: There is moderate calcification of the wall of aorta with mural thrombus. There is no aneurysm. Bowel: The appendix is normal. Bowel gas pattern is nonobstructive. Peritoneum: There is no free fluid. Bones: Unremarkable IMPRESSION: Suspected left pyelonephritis/bacterial nephritis. No abscess or evidence of obstructive nephropathy. Moderate to severe arterial vascular disease. Thickening of the wall the urinary bladder moderately distended. Consider cystitis. Espinal catheter in good position. Groundglass opacification of the lung bases nonspecific The CT scanner at [facility] is accredited by the [employer] and the scans are performed using dose optimization techniques as appropriate to a performed exam including Automatic Exposure control.
--- NOTE | 2019-09-28 09:48 | NUR ---
ED Nurse Note: Bladder irrigation was completed noted BP: 173/75. Reported to Dr. Garcia. Pt denies pain.
--- NOTE | 2019-09-28 10:10 | NUR ---
ED Nurse Note: After giving Hydralazine 0.5ml SBP went down to 155 but after rechecking after 5 mins, BP went up to 171/77. Pt denies pain/headache/dizziness.
--- NOTE | 2019-09-28 10:26 | NUR ---
ED Nurse Note: tylenol given as ordered. patient's BP noted to be 125/105. HR 108, denies any pain.
--- NOTE | 2019-09-28 12:44 | NUR ---
ED Nurse Note: Noted latest BP: 162/67, pt denies any painn/discomfort. Informed charge nurse.
--- NOTE | 2019-09-28 12:51 | NUR ---
TRANSFER TO FLOOR: Patient transferred to [facility] as ordered, per Dr. May. Report given to Michel BADILLO. Belongings and medications given to receiving nurse. Family and or S/O informed of transfer.
--- NOTE | 2019-09-28 13:15 | NUR ---
NURSE NOTES: Pt came up to unit via gurney w/belongings accounted for. Pt drowsy, A&Ox2-3, VSS except BP 170/80, and pt c/o 10/10 pain; will contact MD for admission orders. IV site intact/asymptomatic; skin intact; and Cristiano-Aid colored urine noted in F/C. Lastly, pt would like money from home stored in safe; will notify Nurse Tail Board Worker.
[2019-09-28] MEDS: HydrALAZINE 25mg tab ORAL PRN ×2 (14:35→20:41)
[2019-09-28] MEDS: Morphine Sulfate 2mg/ml Inj(IV/IM USE ONLY) IVP PRN (14:36)
[2019-09-28] MEDS: Heparin 5000 units/ml inj SUBQ SCH ×2 (14:37→21:07)
--- NOTE | 2019-09-28 16:24 | Consultation ---
History of Present Illness General Date patient seen: Sep 28, 2019 Time patient seen: 16:23 Chief Complaint: UTI Reason for Consultation: UTI , sepsis Present Illness HPI This is a 53-year-old male who came to the ED for gross hematuria as well as lower abdominal pain and chills, The patient was started on IV antibiotics. Infectious Diseases consultation has been requested for further evaluation of the patient's antibiotic management of UTI PAST MEDICAL HISTORY: 1. Hyperlipidemia. 2. Hypertension. 3. History of back injury and back pain. 4. Diabetes. MEDICATIONS: no AB Rx ALLERGIES: No known drug allergies. SOCIAL HISTORY: Negative for alcohol or drug abuse. The patient is smoker. FAMILY HISTORY: Not contributing. REVIEW OF SYSTEMS: A 10-point review was done and except what is mentioned above has been negative. Allergies: Coded Allergies: NO KNOWN DRUG ALLERGIES (Unverified Allergy, Unknown, 01/01/15) Medication History Scheduled Atorvastatin Calcium* (Atorvastatin Calcium*), 10 MG ORAL BEDTIME, (Reported) Gabapentin* (Gabapentin*), 300 MG ORAL BEDTIME, (Reported) Glimepiride* (Glimepiride*), 4 MG ORAL BEFORE BREAKFAST, (Reported) Levofloxacin* (Levaquin*), 500 MG ORAL DAILY Metformin Hcl* (Metformin Hcl*), 500 MG ORAL TWICE A DAY, (Reported) Patient History Healthcare decision maker Resuscitation status Full Code Advanced Directive on File Physical Exam General Appearance: lethargic Lines, tubes and drains: central line HEENT: atraumatic Neck: supple Respiratory/Chest: normal breath sounds Cardiovascular/Chest: normal rate Abdomen: non tender, soft Genitourinary/Rectal: jo Extremities: normal inspection Skin Exam: warm/dry Neurologic: no motor/sensory deficits Last 24 Hour Vital Signs Date Time Temp Pulse Resp B/P (MAP) Pulse Ox O2 Delivery O2 Flow Rate FiO2 09/28/19 16:00 106 162/85 (110) 09/28/19 15:45 97.1 109 18 171/80 (110) 97 09/28/19 15:19 Room Air 09/28/19 14:35 170/80 09/28/19 13:00 99.2 104 18 170/80 (110) 98 09/28/19 12:56 98.8 100 18 166/95 99 Room Air 09/28/19 11:51 181/77 09/28/19 11:14 98.8 102 18 178/77 99 Room Air 09/28/19 10:24 98.8 108 18 125/105 97 Room Air 09/28/19 10:22 173/75 09/28/19 09:51 173/75 09/28/19 06:56 98.8 104 18 164/80 97 Room Air 09/28/19 05:45 98.8 102 20 165/80 97 Room Air 09/28/19 03:50 98.8 115 20 173/81 97 Room Air 09/28/19 03:40 98.8 125 20 162/78 (106) 97 Room Air Intake and Output 09/27/19 09/28/19 19:00 07:00 Intake Total 0 ml Output Total 1000 ml Balance -1000 ml Intake Oral 0 ml Output Urine Total 1000 ml Laboratory Tests Test 09/28/19 05:54 09/28/19 06:26 White Blood Count 16.9 K/UL (4.8-10.8) H Red Blood Count 4.16 M/UL (4.70-6.10) L Hemoglobin 12.2 G/DL (14.2-18.0) L Hematocrit 34.7 % (42.0-52.0) L Mean Corpuscular Volume 83 FL (80-99) Mean Corpuscular Hemoglobin 29.2 PG (27.0-31.0) Mean Corpuscular Hemoglobin Concent 35.1 G/DL (32.0-36.0) Red Cell Distribution Width 14.7 % (11.6-14.8) Platelet Count 279 K/UL (150-450) Mean Platelet Volume 7.5 FL (6.5-10.1) Neutrophils (%) (Auto) 84.7 % (45.0-75.0) H Lymphocytes (%) (Auto) 8.2 % (20.0-45.0) L Monocytes (%) (Auto) 6.5 % (1.0-10.0) Eosinophils (%) (Auto) 0.0 % (0.0-3.0) Basophils (%) (Auto) 0.6 % (0.0-2.0) Prothrombin Time 12.5 SEC (9.30-11.50) H Prothromb Time International Ratio 1.2 (0.9-1.1) H Activated Partial Thromboplast Time 40 SEC (23-33) H Sodium Level 143 MMOL/L (136-145) Potassium Level 3.5 MMOL/L (3.5-5.1) Chloride Level 104 MMOL/L (98-107) Carbon Dioxide Level 26 MMOL/L (21-32) Anion Gap 13 mmol/L (5-15) Blood Urea Nitrogen 8 mg/dL (7-18) Creatinine 0.7 MG/DL (0.55-1.30) Estimat Glomerular Filtration Rate > 60 mL/min (>60) Glucose Level 140 MG/DL (74-106) H Calcium Level 8.8 MG/DL (8.5-10.1) Total Bilirubin 0.4 MG/DL (0.2-1.0) Aspartate Amino Transf (AST/SGOT) 18 U/L (15-37) Alanine Aminotransferase (ALT/SGPT) 21 U/L (12-78) Alkaline Phosphatase 163 U/L (46-116) H Total Protein 7.5 G/DL (6.4-8.2) Albumin 3.0 G/DL (3.4-5.0) L Globulin 4.5 g/dL Albumin/Globulin Ratio 0.7 (1.0-2.7) L Urine Color Red Urine Appearance Very cloudy Urine pH 7 (4.5-8.0) Urine Specific [place] 1.010 (1.005-1.035) Urine Protein 4+ (NEGATIVE) H Urine Glucose (UA) Negative (NEGATIVE) Urine Ketones 1+ (NEGATIVE) H Urine Blood 5+ (NEGATIVE) H Urine Nitrite Negative (NEGATIVE) Urine Bilirubin Negative (NEGATIVE) Urine Urobilinogen Normal MG/DL (0.0-1.0) Urine Leukocyte Esterase Negative (NEGATIVE) Urine RBC Tntc /HPF (0 - 0) H Urine WBC 5-10 /HPF (0 - 0) H Urine Squamous Epithelial Cells Occasional /LPF Urine Bacteria Few /HPF (NONE) Height (Feet): 5 Height (Inches): 7.00 Weight (Pounds): 180 Medications Current Medications Medications (Trade) Dose Ordered Sig/Leilani Route PRN Reason Start Time Stop Time Status Last Admin Dose Admin Atorvastatin Calcium (Lipitor) 10 mg BEDTIME ORAL 09/28/19 21:00 10/28/19 20:59 Dextrose (Dextrose 50%) 25 ml Q30M PRN IV Hypoglycemia 09/28/19 14:00 10/28/19 13:59 Dextrose (Dextrose 50%) 50 ml Q30M PRN IV Hypoglycemia 09/28/19 14:00 10/28/19 13:59 Gabapentin (Neurontin) 300 mg BEDTIME ORAL 09/28/19 21:00 10/28/19 20:59 Glimepiride (AmaryL) 4 mg BEFORE BREAKFAST ORAL 09/29/19 06:30 10/29/19 06:29 Heparin Sodium (Porcine) (Heparin 5000 units/ml) 5,000 units EVERY 8 HOURS SUBQ 09/28/19 14:00 10/28/19 13:59 09/28/19 14:37 Hydralazine HCl (Apresoline) 25 mg Q6H PRN ORAL SBP>160 mm Hg 09/28/19 14:00 10/28/19 13:59 09/28/19 14:35 Insulin Aspart (NovoLOG) BEFORE MEALS AND HS SUBQ 09/28/19 16:30 10/28/19 16:29 Iohexol (OMNIPAQUE-300 100ml) 100 ml NOW PRN INJ Radiology Procedure 09/28/19 05:45 09/30/19 05:34 Metformin HCl (Glucophage) 500 mg BIAC ORAL 09/28/19 16:30 10/28/19 16:29 Morphine Sulfate (Morphine Sulfate) 1 mg Q6H PRN IVP pain 09/28/19 14:00 10/05/19 13:59 09/28/19 14:36 Sodium Chloride 1,000 ml @ 100 mls/hr Q10H IV 09/28/19 14:12 09/29/19 10:11 09/28/19 14:34 Assessment/Plan Assessment/Plan: A: Sepsis Luekocytosis afebrile UTI - HU - CT: Suspected left pyelonephritis/bacterial nephritis. No abscess or evidence of obstructive nephropathy Hyperlipidemia. Hypertension. History of back injury and back pain. Diabetes. Pavan Priest MD Sep 28, 2019 16:24
[2019-09-28] MEDS: metFORMIN 500mg tab ORAL SCH (16:49)
[2019-09-28] MEDS: NovoLOG Insulin Flexpen SUBQ SCH ×2 (16:52→20:56)
--- NOTE | 2019-09-28 18:30 | Consultation ---
DATE OF CONSULTATION: 09/28/2019 UROLOGY CONSULTATION CONSULTING PHYSICIAN: Kimo Reyes M.D. ATTENDING/REFERRING PHYSICIAN: Erwin May D.O. CHIEF COMPLAINT/HISTORY OF PRESENT ILLNESS: I was asked by Dr. May to evaluate this very pleasant 53-year-old gentleman regarding history of gross hematuria and urinary retention in the setting of likely urinary tract infection. The patient has a history of diabetes who presented to the hospital with history of several hours of inability to urinate as well as some gross hematuria around the same time. A Espinal catheter was placed and gross hematuria was noted. Given the above, I was asked to evaluate the patient. PAST MEDICAL HISTORY: 1. Diabetes. 2. Hyperlipidemia. 3. Hypertension. 4. Chronic low back pain. MEDICATIONS: Please see chart for current medications administration details. Briefly, the patient is on Unasyn and vancomycin for antibiotic coverage. ALLERGIES: No known drug allergies. SOCIAL HISTORY: Notable for tobacco use. The patient does not drink or use drugs. FAMILY HISTORY: Noncontributory. REVIEW OF SYSTEMS: A 14-system review of systems was unremarkable outside of what is described above. PHYSICAL EXAMINATION: GENERAL: The patient is a middle-aged gentleman, awake, alert and oriented x4, pleasant, in no obvious distress. HEENT: NC/AT. EOMI. Oropharynx clear. NECK: Supple. Full range of motion. CHEST: Within normal limits. ABDOMEN: Soft, nontender, and nondistended. EXTREMITIES: Warm and well perfused. No cyanosis, clubbing, or edema. BACK: No CVA tenderness to percussion. NEUROLOGIC: Grossly nonfocal. GENITOURINARY: Reveals a Espinal catheter in place with bloody but clearing urine output. LABORATORY DATA: White blood cell count 16.9, hematocrit 34.7, and platelets 279,000. PT 12.5, INR 1.2, PTT 40. Sodium 143, potassium 3.5, chloride 104, bicarbonate 26, BUN 8, and creatinine 0.7. Glucose 140. Calcium 8.8. LFTs within normal limits. Alkaline phosphatase 163. Urinalysis, specific gravity 1.010, pH 7.0. Dip test is notable for 4+ protein, 1+ ketone, 5+ occult blood. Microanalysis with too numerous to count red and 5 to 10 white blood cells per high-power field and few bacteria seen. Urine culture is pending. DIAGNOSTIC IMAGING: CT scan of the abdomen and pelvis reveals an abnormal left kidney with heterogenous enhancement and perinephric stranding. Findings are suspicious for pyelonephritis or bacterial nephritis. There is no hydronephrosis or evidence of stones. The bladder is mildly distended. The Espinal catheter is in good position. Other findings as noted. ASSESSMENT AND PLAN: In summary, the patient is a 53-year-old gentleman with history of gross hematuria and urinary retention secondary to the same. A Espinal catheter was placed and he was found to have evidence of an elevated white blood cell count as well as findings consistent with possible left-sided pyelonephritis on CT scan. The urine culture is pending. The patient has been started on Unasyn and vancomycin for antibiotic coverage. I will continue the patient on antibiotics and keep his catheter in place for the time being. I will start him on some medication to try to improve his ability to empty his bladder. Once his urine has cleared from the hematuria, we can take out his catheter for a chance to urinate without it. The patient will eventually need outpatient cystoscopy to complete his workup or something to be done sooner if the urine fails to clear with these measures. Thank you for allowing me to participate in the care of this nice gentleman. Please do not hesitate to contact me with any questions that you may further have regarding his care. I will see him with you as needed. Kimo Reeys M.D. DR: CR JOB#: [id number] CC:
--- NOTE | 2019-09-28 18:45 | History and Physical Report ---
DATE OF ADMISSION: 09/28/2019 TIME SEEN: 1 p.m. CONSULTANTS: 1. Kimo Reyes M.D. 2. Pavan Priest M.D. 3. Dr. Lira. CHIEF COMPLAINT: Hematuria, urine retention, and abdominal pain. BRIEF HISTORY: This is a 53-year-old male, who presented with increased abdominal pain for a day. He had some hematuria, had some urine retention, came to [place], diagnosed with the above, admitted to medical floor. Currently, calm in bed, slight abdominal pain, no complaint. REVIEW OF SYSTEMS: No chest pain. No shortness of breath. No nausea, vomiting, or diarrhea. PAST MEDICAL HISTORY: Diabetes. PAST SURGICAL HISTORY: None. ALLERGIES: Denies. MEDICATIONS: Includes hydralazine, clonidine, and IV fluids. SOCIAL HISTORY: Positive smoking. No alcohol. No intravenous drug abuse. FAMILY HISTORY: Noncontributory. PHYSICAL EXAMINATION: GENERAL: Calm in bed, oriented x3, in no acute distress. VITAL SIGNS: Temperature is 99, pulse 104, respirations 18, and blood pressure 170/80. CARDIOVASCULAR: No murmur. LUNGS: Distant and clear. ABDOMEN: Bowel sound positive. Nontender. Nondistended. EXTREMITIES: Show no cyanosis or edema. NEUROLOGIC: The patient moves all extremities, slightly weak. LABORATORY AND DIAGNOSTIC DATA: Labs at this time show white count 16, H and H 12/34, and platelets 279,000. Glucose 140. Alkaline phosphatase 163. Albumin 3.0. INR is 1.2, PTT is 40. Urinalysis show 5+ blood, 1+ ketone, 4+ protein. ASSESSMENT: 1. Hematuria. 2. Urine retention. 3. . 4. Leukocytosis. 5. Anemia. 6. Malnutrition. 7. Diabetes. PLAN: 1. Blood sugar and pain control. 2. Dietary followup. 3. IV fluids. 4. Hematology, ID and Urology followup. Erwin May D.O. DR: VANCE JOB#: [id number] CC:
--- NOTE | 2019-09-28 19:07 | Consultation ---
History of Present Illness General Chief Complaint: Male Urogenital Problems Reason for Consultation: UTI , sepsis Present Illness Allergies: Coded Allergies: NO KNOWN DRUG ALLERGIES (Unverified Allergy, Unknown, 01/01/15) Medication History Scheduled Atorvastatin Calcium* (Atorvastatin Calcium*), 10 MG ORAL BEDTIME, (Reported) Gabapentin* (Gabapentin*), 300 MG ORAL BEDTIME, (Reported) Glimepiride* (Glimepiride*), 4 MG ORAL BEFORE BREAKFAST, (Reported) Levofloxacin* (Levaquin*), 500 MG ORAL DAILY Metformin Hcl* (Metformin Hcl*), 500 MG ORAL TWICE A DAY, (Reported) Patient History Healthcare decision maker Resuscitation status Full Code Advanced Directive on File Physical Exam Last 24 Hour Vital Signs Date Time Temp Pulse Resp B/P (MAP) Pulse Ox O2 Delivery O2 Flow Rate FiO2 09/28/19 18:29 164/71 09/28/19 16:00 106 162/85 (110) 09/28/19 15:45 97.1 109 18 171/80 (110) 97 09/28/19 15:19 Room Air 09/28/19 14:35 170/80 09/28/19 13:00 99.2 104 18 170/80 (110) 98 09/28/19 12:56 98.8 100 18 166/95 99 Room Air 09/28/19 11:51 181/77 09/28/19 11:14 98.8 102 18 178/77 99 Room Air 09/28/19 10:24 98.8 108 18 125/105 97 Room Air 09/28/19 10:22 173/75 09/28/19 09:51 173/75 09/28/19 06:56 98.8 104 18 164/80 97 Room Air 09/28/19 05:45 98.8 102 20 165/80 97 Room Air 09/28/19 03:50 98.8 115 20 173/81 97 Room Air 09/28/19 03:40 98.8 125 20 162/78 (106) 97 Room Air Intake and Output 09/27/19 09/28/19 19:00 07:00 Intake Total 0 ml Output Total 1000 ml Balance -1000 ml Intake Oral 0 ml Output Urine Total 1000 ml Laboratory Tests Test 09/28/19 05:54 09/28/19 06:26 09/28/19 18:20 White Blood Count 16.9 K/UL (4.8-10.8) H Red Blood Count 4.16 M/UL (4.70-6.10) L Hemoglobin 12.2 G/DL (14.2-18.0) L Hematocrit 34.7 % (42.0-52.0) L Mean Corpuscular Volume 83 FL (80-99) Mean Corpuscular Hemoglobin 29.2 PG (27.0-31.0) Mean Corpuscular Hemoglobin Concent 35.1 G/DL (32.0-36.0) Red Cell Distribution Width 14.7 % (11.6-14.8) Platelet Count 279 K/UL (150-450) Mean Platelet Volume 7.5 FL (6.5-10.1) Neutrophils (%) (Auto) 84.7 % (45.0-75.0) H Lymphocytes (%) (Auto) 8.2 % (20.0-45.0) L Monocytes (%) (Auto) 6.5 % (1.0-10.0) Eosinophils (%) (Auto) 0.0 % (0.0-3.0) Basophils (%) (Auto) 0.6 % (0.0-2.0) Prothrombin Time 12.5 SEC (9.30-11.50) H Prothromb Time International Ratio 1.2 (0.9-1.1) H Activated Partial Thromboplast Time 40 SEC (23-33) H Sodium Level 143 MMOL/L (136-145) Potassium Level 3.5 MMOL/L (3.5-5.1) Chloride Level 104 MMOL/L (98-107) Carbon Dioxide Level 26 MMOL/L (21-32) Anion Gap 13 mmol/L (5-15) Blood Urea Nitrogen 8 mg/dL (7-18) Creatinine 0.7 MG/DL (0.55-1.30) Estimat Glomerular Filtration Rate > 60 mL/min (>60) Glucose Level 140 MG/DL (74-106) H Calcium Level 8.8 MG/DL (8.5-10.1) Total Bilirubin 0.4 MG/DL (0.2-1.0) Aspartate Amino Transf (AST/SGOT) 18 U/L (15-37) Alanine Aminotransferase (ALT/SGPT) 21 U/L (12-78) Alkaline Phosphatase 163 U/L (46-116) H Total Protein 7.5 G/DL (6.4-8.2) Albumin 3.0 G/DL (3.4-5.0) L Globulin 4.5 g/dL Albumin/Globulin Ratio 0.7 (1.0-2.7) L Urine Color Red Urine Appearance Very cloudy Urine pH 7 (4.5-8.0) Urine Specific Sidell 1.010 (1.005-1.035) Urine Protein 4+ (NEGATIVE) H Urine Glucose (UA) Negative (NEGATIVE) Urine Ketones 1+ (NEGATIVE) H Urine Blood 5+ (NEGATIVE) H Urine Nitrite Negative (NEGATIVE) Urine Bilirubin Negative (NEGATIVE) Urine Urobilinogen Normal MG/DL (0.0-1.0) Urine Leukocyte Esterase Negative (NEGATIVE) Urine RBC Tntc /HPF (0 - 0) H Urine WBC 5-10 /HPF (0 - 0) H Urine Squamous Epithelial Cells Occasional /LPF Urine Bacteria Few /HPF (NONE) Lactic Acid Level Pending Ammonia < 10 umol/L (11-32) L Height (Feet): 5 Height (Inches): 7.00 Weight (Pounds): 180 Medications Current Medications Medications (Trade) Dose Ordered Sig/Leilani Route PRN Reason Start Time Stop Time Status Last Admin Dose Admin Atorvastatin Calcium (Lipitor) 10 mg BEDTIME ORAL 09/28/19 21:00 10/28/19 20:59 Ceftriaxone Sodium 2 gm/ Dextrose 55 ml @ 110 mls/hr DAILY@1800 IVPB 09/28/19 19:30 10/05/19 19:29 09/28/19 18:59 Clonidine HCl (Catapres Tab) 0.1 mg Q12H PRN ORAL SBP>160 mm Hg 09/28/19 18:15 10/28/19 18:14 09/28/19 18:29 Dextrose (Dextrose 50%) 25 ml Q30M PRN IV Hypoglycemia 09/28/19 14:00 10/28/19 13:59 Dextrose (Dextrose 50%) 50 ml Q30M PRN IV Hypoglycemia 09/28/19 14:00 10/28/19 13:59 Finasteride (Proscar) 5 mg QHS ORAL 09/28/19 21:00 10/28/19 20:59 Gabapentin (Neurontin) 300 mg BEDTIME ORAL 09/28/19 21:00 10/28/19 20:59 Glimepiride (AmaryL) 4 mg BEFORE BREAKFAST ORAL 09/29/19 06:30 10/29/19 06:29 Heparin Sodium (Porcine) (Heparin 5000 units/ml) 5,000 units EVERY 8 HOURS SUBQ 09/28/19 14:00 10/28/19 13:59 09/28/19 14:37 Hydralazine HCl (Apresoline) 25 mg Q6H PRN ORAL SBP>160 mm Hg 09/28/19 14:00 10/28/19 13:59 09/28/19 14:35 Insulin Aspart (NovoLOG) BEFORE MEALS AND HS SUBQ 09/28/19 16:30 10/28/19 16:29 09/28/19 16:52 Iohexol (OMNIPAQUE-300 100ml) 100 ml NOW PRN INJ Radiology Procedure 09/28/19 05:45 09/30/19 05:34 Metformin HCl (Glucophage) 500 mg BIAC ORAL 09/28/19 16:30 10/28/19 16:29 09/28/19 16:49 Morphine Sulfate (Morphine Sulfate) 1 mg Q6H PRN IVP pain 09/28/19 14:00 10/05/19 13:59 09/28/19 14:36 Sodium Chloride 1,000 ml @ 100 mls/hr Q10H IV 09/28/19 14:12 09/29/19 10:11 09/28/19 14:34 Tamsulosin HCl (Flomax) 0.4 mg BEDTIME ORAL 09/28/19 21:00 10/28/19 20:59 Assessment/Plan Assessment/Plan: Hematology Consultation Reason for Consultation: UTI , sepsis REQ : Erwin May RFC: Hematuria DOS: 09/28/19 ID This is a 53-year-old male who came to the ED for gross hematuria as well as lower abdominal pain and chills, The patient was started on IV antibiotics. Infectious Diseases consultation has been requested for further evaluation of the patient's antibiotic management of UTI Has been seen by uro and id, is on abx, with jo, labs noted, hgb 12 PAST MEDICAL HISTORY: 1. Hyperlipidemia. 2. Hypertension. 3. History of back injury and back pain. 4. Diabetes. MEDICATIONS: no AB Rx ALLERGIES: No known drug allergies. SOCIAL HISTORY: Negative for alcohol or drug abuse. The patient is smoker. FAMILY HISTORY: Not contributing. ROS (review of systems): Constitutional: No fever, no chills, no night sweats, no fatigue Skin: No rashes, lumps, itchiness, dryness HEENT: No PAYNE, ear ache, visual changes, double vision, nosebleeds Breasts: No lumps, pain, discharge Pulmonary: No cough, sputum, shortness of breath, coughing up blood Cardiovascular: No chest pain, tightness, palpitations, syncope, PND GI: No nausea, vomiting, diarrhea, melena, hematochezia, change in appetite, : No dysuria, frequency, urgency, + hematuria ++ dysuria Musculoskeletal: No joint swelling or muscle pain, trauma, back pain Neurologic: No dizziness, fainting, seizures, changes in smell or taste Psychiatric: No nervousness, stress, or depression, anxiety, hallucinations Endocrine: No weight change, heat or cold intolerance, tremor, insomnia Coded Allergies: NO KNOWN DRUG ALLERGIES (Unverified Allergy, Unknown, 01/01/15) Medication History Scheduled Atorvastatin Calcium* (Atorvastatin Calcium*), 10 MG ORAL BEDTIME, (Reported) Gabapentin* (Gabapentin*), 300 MG ORAL BEDTIME, (Reported) Glimepiride* (Glimepiride*), 4 MG ORAL BEFORE BREAKFAST, (Reported) Levofloxacin* (Levaquin*), 500 MG ORAL DAILY Metformin Hcl* (Metformin Hcl*), 500 MG ORAL TWICE A DAY, (Reported) Patient History Healthcare decision maker Resuscitation status Full Code Advanced Directive on File Physical Exam General Appearance: lethargic Lines, tubes and drains: central line HEENT: atraumatic Neck: supple Respiratory/Chest: normal breath sounds Cardiovascular/Chest: normal rate Abdomen: non tender, soft Genitourinary/Rectal: jo Extremities: normal inspection Skin Exam: warm/dry Neurologic: no motor/sensory deficits : ++ jo Labs: noted Imaging: noted Assessment/Plan: # Leukocytosis 2/2 Sepsisfrom uti --> for uti, continue on abx --> peripheral smear has been noted --> labs have been reviewed # Hematuria is likely related to UTI --> make sure to draw psa, dw rn --> r/o jo trauma # Suspected left pyelonephritis/bacterial nephritis. No abscess or evidence of obstructive nephropathy --> on abx # DM --> a1c goal <8% # HTN --> sbp goal 140 # Hyperlipidemia. --> statin as needed ROBINSON Keita and appreciate consultation Og Lira MD Sep 28, 2019 19:07
[2019-09-28] MEDS ORDERED: cefTRIAXone 2 GM in D5W 55 ML IVPB SCH (19:30)
--- NOTE | 2019-09-28 19:30 | NUR ---
HAND-OFF: Report given to JUSTINO Coe. Endorsed to please collect urine culture.
--- NOTE | 2019-09-28 19:52 | NUR ---
NURSES NOTE: Met pt in bed, A/OX2, denies pain or discomfort at this time. No outward s/s of distress noted. Breathing pattern is even and unlabored on RA. Espinal in place, draining to gravity. Urine bright red in color. IV site LH 20 gauge is patent, running iv fluids according to eMAR. All due meds will be given. Urine sample to be collected. Bed at lowest level, call light within reach. Pt will continue to be monitored.
[2019-09-28] MEDS: Tamsulosin 0.4mg cap ORAL SCH (20:41)
[2019-09-28 20:44] LABS: INR 1.2 (0.9-1.1)
[2019-09-28 21:07] LABS: FERRITIN 177 NG/ML (8-388)
[2019-09-28 21:22] LABS: % IRON SATURATION 6 % (15-50); IRON 14 ug/dL (50-175); TOTAL IRON BINDING CAPACITY 218 ug/dL (250-450)
[2019-09-29] VITALS: BP 177/78
[2019-09-29] MEDS: HydrALAZINE 25mg tab ORAL PRN ×2 (03:35→15:55)
[2019-09-29 04:00] VITALS: BP 180/79
[2019-09-29] MEDS: Glimepiride 1mg tab ORAL SCH (05:45)
[2019-09-29] MEDS: metFORMIN 500mg tab ORAL SCH ×2 (05:46→16:30)
[2019-09-29] MEDS: Heparin 5000 units/ml inj SUBQ SCH ×3 (05:46→21:45)
[2019-09-29] MEDS: NovoLOG Insulin Flexpen SUBQ SCH ×4 (06:30→21:00)
[2019-09-29 06:58] LABS: ANION GAP 10 mmol/L (5-15); BLOOD UREA NITROGEN 13 mg/dL (7-18); CALCIUM 8.8 MG/DL (8.5-10.1); CARBON DIOXIDE 27 MMOL/L (21-32); CHLORIDE 105 MMOL/L (98-107); CREATININE 0.6 MG/DL (0.55-1.30); HEMOGLOBIN 11.2 G/DL (14.2-18.0); MEAN CORPUSCULAR VOLUME 86 FL (80-99); PLATELET COUNT 251 K/UL (150-450); POTASSIUM 3.1 MMOL/L (3.5-5.1); RED BLOOD COUNT 3.96 M/UL (4.70-6.10); RED CELL DISTRIBUTION WIDTH 14.2 % (11.6-14.8); SODIUM 142 MMOL/L (136-145)
--- NOTE | 2019-09-29 07:50 | NUR ---
NURSE NOTES: WALKING ROUNDS DONE WITH OUTGOING RN. PATIENT AWAKE IN BED. STILL DISPLAYS SOME CONFUSION. AOX2-3 BUT PLEASANT . ABLE TO FOLLOW SIMPLE COMMANDS BUT RECALL IS POOR. DUFFY CATHETER PATENT AND SECURED TO LEFT THIGH. DISCUSSED PLAN OF CARE FOR THE DAY. ACKNOWLEDGED UNDERSTANDING. INSTRUCTED PATIENT TO USE CALL BUTTON WHEN IN NEED OF ASSISTANCE. RETURN DEMONSTRATION POOR. BED ALARM ON, PATIENT CLOSE TO NURSE'S STATION. BED IN LOW AND LOCKED POSITION. CALL LIGHT WITHIN REACH.
[2019-09-29 08:00] VITALS: BP 156/78
--- NOTE | 2019-09-29 08:07 | NUR ---
HAND OFF: Report given to JUSTINO Cardoza. New orders processed for elevated BP. Pt in stable condition.
--- NOTE | 2019-09-29 09:42 | General Progress Note ---
Assessment/Plan Problem List: (1) Urine retention ICD Codes: R33.9 - Retention of urine, unspecified SNOMED: 023472481 (2) Anemia ICD Codes: D64.9 - Anemia, unspecified SNOMED: 638153439 (3) Malnutrition ICD Codes: E46 - Unspecified protein-calorie malnutrition SNOMED: 05748085 (4) Leukocytosis ICD Codes: D72.829 - Elevated white blood cell count, unspecified SNOMED: 838762361, 517031434 (5) Hematuria ICD Codes: R31.9 - Hematuria, unspecified SNOMED: 27180589 Status: unchanged Assessment/Plan: pt diet abx uro f/u cbc bmp am Subjective Constitutional: Reports: weakness Allergies: Coded Allergies: NO KNOWN DRUG ALLERGIES (Unverified Allergy, Unknown, 01/01/15) All Systems: reviewed and negative except above Subjective sl abd pain Objective Last 24 Hour Vital Signs Date Time Temp Pulse Resp B/P (MAP) Pulse Ox O2 Delivery O2 Flow Rate FiO2 09/29/19 08:00 97.9 121 18 156/78 (104) 92 09/29/19 06:41 95 155/78 09/29/19 04:00 98.3 103 20 180/79 (112) 95 09/29/19 03:35 177/78 09/29/19 00:00 98.2 108 20 177/78 (111) 96 09/28/19 21:00 Room Air 09/28/19 20:41 180/85 09/28/19 20:00 98.4 106 17 180/85 (116) 96 09/28/19 18:29 164/71 09/28/19 16:00 106 162/85 (110) 09/28/19 15:45 97.1 109 18 171/80 (110) 97 09/28/19 15:19 Room Air 09/28/19 14:35 170/80 09/28/19 13:00 99.2 104 18 170/80 (110) 98 09/28/19 12:56 98.8 100 18 166/95 99 Room Air 09/28/19 11:51 181/77 09/28/19 11:14 98.8 102 18 178/77 99 Room Air 09/28/19 10:24 98.8 108 18 125/105 97 Room Air 09/28/19 10:22 173/75 2/25/20 09:51 173/75 Intake and Output 09/28/19 09/29/19 19:00 07:00 Intake Total 400 ml Output Total 3600 ml 875 ml Balance -3600 ml -475 ml IV Total 400 ml Output Urine Total 3600 ml 875 ml # Bowel Movements 1 1 Laboratory Tests 09/28/19 18:20: Lactic Acid Level 1.30, Ammonia < 10L 09/28/19 19:50: Reticulocyte Count 1.9, Prothrombin Time 12.9H, Prothromb Time International Ratio 1.2H, Iron Level 14L, Total Iron Binding Capacity 218L, Percent Iron Saturation 6L, Unsaturated Iron Binding 204, Ferritin 177, Carcinoembryonic Antigen [Pending], CA 15-3 Antigen [Pending], CA 19-9 Antigen [Pending], Prostate Specific Antigen 0.39, Vitamin B12 Level 446, Thyroid Stimulating Hormone (TSH) 0.397 09/29/19 04:50: White Blood Count 17.0H, Red Blood Count 3.96L, Hemoglobin 11.2L, Hematocrit 34.0L, Mean Corpuscular Volume 86, Mean Corpuscular Hemoglobin 28.2, Mean Corpuscular Hemoglobin Concent 32.9, Red Cell Distribution Width 14.2, Platelet Count 251, Mean Platelet Volume 7.2, Neutrophils (%) (Auto) , Lymphocytes (%) ( Auto) , Monocytes (%) (Auto) , Eosinophils (%) (Auto) , Basophils (%) (Auto) , Differential Total Cells Counted 100, Neutrophils % (Manual) 88H, Lymphocytes % (Manual) 7L, Monocytes % (Manual) 5, Eosinophils % (Manual) 0, Basophils % ( Manual) 0, Band Neutrophils 0, Platelet Estimate Adequate, Platelet Morphology Normal, Sodium Level 142, Potassium Level 3.1L, Chloride Level 105, Carbon Dioxide Level 27, Anion Gap 10, Blood Urea Nitrogen 13, Creatinine 0.6, Estimat Glomerular Filtration Rate > 60, Glucose Level 131H, Hemoglobin A1c 6.8H, Calcium Level 8.8 Height (Feet): 5 Height (Inches): 7.00 Weight (Pounds): 162 General Appearance: alert EENT: normal ENT inspection Neck: normal alignment Cardiovascular: normal peripheral pulses, normal rate, regular rhythm Respiratory/Chest: chest wall non-tender, lungs clear, normal breath sounds Abdomen: normal bowel sounds, non tender, soft Extremities: normal inspection Edema: no edema noted Arm (L), no edema noted Arm (R), no edema noted Leg (L), no edema noted Leg (R), no edema noted Pedal (L), no edema noted Pedal (R), no edema noted Generalized Neurologic: responsive, motor weakness Skin: normal pigmentation, warm/dry Erwin May DO Sep 29, 2019 09:42
--- NOTE | 2019-09-29 10:11 | Diagnostic Imaging Report ---
Indication: Headache Technique: Contiguous 5 mm thick transaxial imaging of the head obtained in a Siemens Sensation [address] scanner. Soft tissue and bone windows generated. Automatic Exposure Control was utilized. Total Dose length Product (DLP): 992.1mGycm CT Dose Index Volume (CTDIvol): 53.4 mGy Comparison: none Findings: The size and configuration of the cortical sulci, basal cisterns, and ventricles are within normal limits for age. There is no mass effect, midline shift, or edema identified. There is no evidence of acute hemorrhage or abnormal intra-axial or extra-axial fluid collections. The bones and soft tissues are unremarkable. There is opacification of the visualized left maxillary sinus and part of the left ethmoid sinus consistent with sinusitis. Impression: No mass effect, edema or acute bleed. Sinusitis The CT scanner at [facility] is accredited by the [employer] and the scans are performed using dose optimization techniques as appropriate to a performed exam including Automatic Exposure control.
--- NOTE | 2019-09-29 10:50 | Infectious Diseases Prog Note ---
Assessment/Plan Assessment/Plan Assessment/Plan: A: Sepsis Luekocytosis afebrile UTI - HU - CT: Suspected left pyelonephritis/bacterial nephritis. No abscess or evidence of obstructive nephropathy no evid of sinusitis (clinically, no sinus tenderness ) - CT of head : Sinusitis Hyperlipidemia. Hypertension. History of back injury and back pain. Diabetes. P: cont pt on Rocephin # 2 CMP, CBC Monitor CBC Monitor CMP Monitor CXR Uro fup Thank you Subjective Allergies: Coded Allergies: NO KNOWN DRUG ALLERGIES (Unverified Allergy, Unknown, 01/01/15) Subjective no acute event Objective Vital Signs Last 24 Hour Vital Signs Date Time Temp Pulse Resp B/P (MAP) Pulse Ox O2 Delivery O2 Flow Rate FiO2 09/29/19 09:00 Room Air 09/29/19 08:00 97.9 121 18 156/78 (104) 92 09/29/19 06:41 95 155/78 09/29/19 04:00 98.3 103 20 180/79 (112) 95 09/29/19 03:35 177/78 09/29/19 00:00 98.2 108 20 177/78 (111) 96 09/28/19 21:00 Room Air 09/28/19 20:41 180/85 09/28/19 20:00 98.4 106 17 180/85 (116) 96 09/28/19 18:29 164/71 09/28/19 16:00 106 162/85 (110) 09/28/19 15:45 97.1 109 18 171/80 (110) 97 09/28/19 15:19 Room Air 09/28/19 14:35 170/80 09/28/19 13:00 99.2 104 18 170/80 (110) 98 09/28/19 12:56 98.8 100 18 166/95 99 Room Air 09/28/19 11:51 181/77 09/28/19 11:14 98.8 102 18 178/77 99 Room Air Height (Feet): 5 Height (Inches): 7.00 Weight (Pounds): 162 Respiratory/Chest: lungs clear Cardiovascular: normal rate Abdomen: non distended Laboratory Tests Test 09/28/19 18:20 09/28/19 19:50 09/29/19 04:50 Lactic Acid Level 1.30 mmol/L (0.4-2.0) Ammonia < 10 umol/L (11-32) L Reticulocyte Count 1.9 % (0.5-2.0) Prothrombin Time 12.9 SEC (9.30-11.50) H Prothromb Time International Ratio 1.2 (0.9-1.1) H Iron Level 14 ug/dL (50-175) L Total Iron Binding Capacity 218 ug/dL (250-450) L Percent Iron Saturation 6 % (15-50) L Unsaturated Iron Binding 204 ug/dL (112-346) Ferritin 177 NG/ML (8-388) Carcinoembryonic Antigen Pending CA 15-3 Antigen Pending CA 19-9 Antigen Pending Prostate Specific Antigen 0.39 ng/mL (0.13-4.0) Vitamin B12 Level 446 PG/ML (193-986) Thyroid Stimulating Hormone (TSH) 0.397 uiU/mL (0.358-3.740) White Blood Count 17.0 K/UL (4.8-10.8) H Red Blood Count 3.96 M/UL (4.70-6.10) L Hemoglobin 11.2 G/DL (14.2-18.0) L Hematocrit 34.0 % (42.0-52.0) L Mean Corpuscular Volume 86 FL (80-99) Mean Corpuscular Hemoglobin 28.2 PG (27.0-31.0) Mean Corpuscular Hemoglobin Concent 32.9 G/DL (32.0-36.0) Red Cell Distribution Width 14.2 % (11.6-14.8) Platelet Count 251 K/UL (150-450) Mean Platelet Volume 7.2 FL (6.5-10.1) Neutrophils (%) (Auto) % (45.0-75.0) Lymphocytes (%) (Auto) % (20.0-45.0) Monocytes (%) (Auto) % (1.0-10.0) Eosinophils (%) (Auto) % (0.0-3.0) Basophils (%) (Auto) % (0.0-2.0) Differential Total Cells Counted 100 Neutrophils % (Manual) 88 % (45-75) H Lymphocytes % (Manual) 7 % (20-45) L Monocytes % (Manual) 5 % (1-10) Eosinophils % (Manual) 0 % (0-3) Basophils % (Manual) 0 % (0-2) Band Neutrophils 0 % (0-8) Platelet Estimate Adequate Platelet Morphology Normal Sodium Level 142 MMOL/L (136-145) Potassium Level 3.1 MMOL/L (3.5-5.1) L Chloride Level 105 MMOL/L (98-107) Carbon Dioxide Level 27 MMOL/L (21-32) Anion Gap 10 mmol/L (5-15) Blood Urea Nitrogen 13 mg/dL (7-18) Creatinine 0.6 MG/DL (0.55-1.30) Estimat Glomerular Filtration Rate > 60 mL/min (>60) Glucose Level 131 MG/DL (74-106) H Hemoglobin A1c 6.8 % (4.3-6.0) H Calcium Level 8.8 MG/DL (8.5-10.1) Current Medications Medications (Trade) Dose Ordered Sig/Leilani Route PRN Reason Start Time Stop Time Status Last Admin Dose Admin Amlodipine Besylate (Norvasc) 5 mg DAILY ORAL 09/30/19 09:00 10/30/19 08:59 Atorvastatin Calcium (Lipitor) 10 mg BEDTIME ORAL 09/28/19 21:00 10/28/19 20:59 09/28/19 20:41 Ceftriaxone Sodium 2 gm/ Dextrose 55 ml @ 110 mls/hr DAILY@1800 IVPB 09/28/19 19:30 10/05/19 19:29 09/28/19 18:59 Clonidine HCl (Catapres Tab) 0.1 mg EVERY 6 HOURS PRN ORAL SBP>160 mm Hg 09/29/19 06:15 10/28/19 18:14 Dextrose (Dextrose 50%) 25 ml Q30M PRN IV Hypoglycemia 09/28/19 14:00 10/28/19 13:59 Dextrose (Dextrose 50%) 50 ml Q30M PRN IV Hypoglycemia 09/28/19 14:00 10/28/19 13:59 Finasteride (Proscar) 5 mg QHS ORAL 09/28/19 21:00 10/28/19 20:59 09/28/19 20:41 Gabapentin (Neurontin) 300 mg BEDTIME ORAL 09/28/19 21:00 10/28/19 20:59 09/28/19 20:43 Glimepiride (AmaryL) 4 mg BEFORE BREAKFAST ORAL 09/29/19 06:30 10/29/19 06:29 09/29/19 05:45 Heparin Sodium (Porcine) (Heparin 5000 units/ml) 5,000 units EVERY 8 HOURS SUBQ 09/28/19 14:00 10/28/19 13:59 09/29/19 05:46 Hydralazine HCl (Apresoline) 25 mg Q6H PRN ORAL SBP>160 mm Hg 09/28/19 14:00 10/28/19 13:59 09/29/19 03:35 Insulin Aspart (NovoLOG) BEFORE MEALS AND HS SUBQ 09/28/19 16:30 10/28/19 16:29 09/28/19 16:52 Iohexol (OMNIPAQUE-300 100ml) 100 ml NOW PRN INJ Radiology Procedure 09/28/19 05:45 09/30/19 05:34 Metformin HCl (Glucophage) 500 mg BIAC ORAL 09/28/19 16:30 10/28/19 16:29 09/29/19 05:46 Morphine Sulfate (Morphine Sulfate) 1 mg Q6H PRN IVP pain 09/28/19 14:00 10/05/19 13:59 09/28/19 14:36 Potassium Chloride 100 ml @ 100 mls/hr Q1HR IVPB 09/29/19 11:00 09/29/19 14:59 Sodium Chloride 400 ml @ 100 mls/hr Q4H IV 09/29/19 11:00 09/29/19 14:59 Tamsulosin HCl (Flomax) 0.4 mg BEDTIME ORAL 09/28/19 21:00 10/28/19 20:59 09/28/19 20:41 Pavan Priest MD Sep 29, 2019 10:50
[2019-09-29] MEDS ORDERED: Sodium Chloride for KCL Premix X 4hrs IV SCH (11:00)
[2019-09-29] MEDS: Morphine Sulfate 2mg/ml Inj(IV/IM USE ONLY) IVP PRN (11:41)
[2019-09-29 12:00] VITALS: BP 143/62
--- NOTE | 2019-09-29 15:47 | Hematology/Onc Progress Note ---
Assessment/Plan Assessment/Plan Assessment/Plan: # Leukocytosis 2/2 Sepsisfrom uti --> for uti, continue on abx --> peripheral smear has been noted --> labs have been reviewed --> on rocephin # Anemia of chronic disease v from hematuira --> r/o hemolysis --> no evidence of gi bleed is noted --> transfuse on prn basis # Hematuria is likely related to UTI --> make sure to draw psa, robinson rn --> r/o jo trauma # Suspected left pyelonephritis/bacterial nephritis. No abscess or evidence of obstructive nephropathy --> on abx # DM --> a1c goal <8% # HTN --> sbp goal 140 # Hyperlipidemia. --> statin as needed ROBINSON Rn and appreciate consultation Subjective Constitutional: Denies: no symptoms, chills, fever, malaise, weakness, other Gastrointestinal/Abdominal: Denies: no symptoms, abdomen distended, abdominal pain, black stools, tarry stools, blood in stool, constipated, diarrhea, difficulty swallowing, nausea, poor appetite, poor fluid intake, rectal bleeding , vomiting, other Genitourinary: Denies: no symptoms, burning, discharge, frequency, flank pain, hematuria, incontinence, pain, urgency, other Neurologic/Psychiatric: Denies: no symptoms, anxiety, depressed, emotional problems, headache, numbness, paresthesia, pre-existing deficit, seizure, tingling, tremors, weakness, other Endocrine: Denies: no symptoms, excessive sweating, flushing, intolerance to cold, intolerance to heat, increased hunger, increased thirst, increased urine, unexplained weight gain, unexplained weight loss, other Allergies: Coded Allergies: NO KNOWN DRUG ALLERGIES (Unverified Allergy, Unknown, 01/01/15) Subjective 09/29: continues to be confused, no bleeding, on rocephin Objective Objective Current Medications Medications (Trade) Dose Ordered Sig/Leilani Route PRN Reason Start Time Stop Time Status Last Admin Dose Admin Amlodipine Besylate (Norvasc) 5 mg DAILY ORAL 09/30/19 09:00 10/30/19 08:59 Atorvastatin Calcium (Lipitor) 10 mg BEDTIME ORAL 09/28/19 21:00 10/28/19 20:59 09/28/19 20:41 Ceftriaxone Sodium 2 gm/ Dextrose 55 ml @ 110 mls/hr DAILY@1800 IVPB 09/28/19 19:30 10/05/19 19:29 09/28/19 18:59 Clonidine HCl (Catapres Tab) 0.1 mg EVERY 6 HOURS PRN ORAL SBP>160 mm Hg 09/29/19 06:15 10/28/19 18:14 Dextrose (Dextrose 50%) 25 ml Q30M PRN IV Hypoglycemia 09/28/19 14:00 10/28/19 13:59 Dextrose (Dextrose 50%) 50 ml Q30M PRN IV Hypoglycemia 09/28/19 14:00 10/28/19 13:59 Finasteride (Proscar) 5 mg QHS ORAL 09/28/19 21:00 10/28/19 20:59 09/28/19 20:41 Gabapentin (Neurontin) 300 mg BEDTIME ORAL 09/28/19 21:00 10/28/19 20:59 09/28/19 20:43 Glimepiride (AmaryL) 4 mg BEFORE BREAKFAST ORAL 09/29/19 06:30 10/29/19 06:29 09/29/19 05:45 Heparin Sodium (Porcine) (Heparin 5000 units/ml) 5,000 units EVERY 8 HOURS SUBQ 09/28/19 14:00 10/28/19 13:59 09/29/19 14:20 Hydralazine HCl (Apresoline) 25 mg Q6H PRN ORAL SBP>160 mm Hg 09/28/19 14:00 10/28/19 13:59 09/29/19 03:35 Insulin Aspart (NovoLOG) BEFORE MEALS AND HS SUBQ 09/28/19 16:30 10/28/19 16:29 09/28/19 16:52 Iohexol (OMNIPAQUE-300 100ml) 100 ml NOW PRN INJ Radiology Procedure 09/28/19 05:45 09/30/19 05:34 Metformin HCl (Glucophage) 500 mg BIAC ORAL 09/28/19 16:30 10/28/19 16:29 09/29/19 05:46 Morphine Sulfate (Morphine Sulfate) 1 mg Q6H PRN IVP pain 09/28/19 14:00 10/05/19 13:59 09/29/19 11:41 Tamsulosin HCl (Flomax) 0.4 mg BEDTIME ORAL 09/28/19 21:00 10/28/19 20:59 09/28/19 20:41 Last 24 Hour Vital Signs Date Time Temp Pulse Resp B/P (MAP) Pulse Ox O2 Delivery O2 Flow Rate FiO2 09/29/19 12:11 97.9 09/29/19 12:00 98.9 120 20 143/62 (89) 98 09/29/19 09:00 Room Air 09/29/19 08:00 97.9 121 18 156/78 (104) 92 09/29/19 06:41 95 155/78 09/29/19 04:00 98.3 103 20 180/79 (112) 95 09/29/19 03:35 177/78 09/29/19 00:00 98.2 108 20 177/78 (111) 96 09/28/19 21:00 Room Air 09/28/19 20:41 180/85 09/28/19 20:00 98.4 106 17 180/85 (116) 96 09/28/19 18:29 164/71 09/28/19 16:00 106 162/85 (110) 09/28/19 15:45 97.1 109 18 171/80 (110) 97 09/28/19 15:19 Room Air 09/28/19 14:35 170/80 09/28/19 13:00 99.2 104 18 170/80 (110) 98 09/28/19 12:56 98.8 100 18 166/95 99 Room Air 09/28/19 11:51 181/77 09/28/19 11:14 98.8 102 18 178/77 99 Room Air 09/28/19 10:24 98.8 108 18 125/105 97 Room Air 09/28/19 10:22 173/75 09/28/19 09:51 173/75 09/28/19 06:56 98.8 104 18 164/80 97 Room Air 09/28/19 05:45 98.8 102 20 165/80 97 Room Air 09/28/19 03:50 98.8 115 20 173/81 97 Room Air 09/28/19 03:40 98.8 125 20 162/78 (106) 97 Room Air Intake and Output 09/28/19 09/29/19 19:00 07:00 Intake Total 400 ml Output Total 3600 ml 875 ml Balance -3600 ml -475 ml IV Total 400 ml Output Urine Total 3600 ml 875 ml # Bowel Movements 1 1 Labs Test 09/28/19 05:54 09/28/19 06:26 09/28/19 18:20 09/28/19 19:50 White Blood Count 16.9 K/UL (4.8-10.8) Red Blood Count 4.16 M/UL (4.70-6.10) Hemoglobin 12.2 G/DL (14.2-18.0) Hematocrit 34.7 % (42.0-52.0) Mean Corpuscular Volume 83 FL (80-99) Mean Corpuscular Hemoglobin 29.2 PG (27.0-31.0) Mean Corpuscular Hemoglobin Concent 35.1 G/DL (32.0-36.0) Red Cell Distribution Width 14.7 % (11.6-14.8) Platelet Count 279 K/UL (150-450) Mean Platelet Volume 7.5 FL (6.5-10.1) Neutrophils (%) (Auto) 84.7 % (45.0-75.0) Lymphocytes (%) (Auto) 8.2 % (20.0-45.0) Monocytes (%) (Auto) 6.5 % (1.0-10.0) Eosinophils (%) (Auto) 0.0 % (0.0-3.0) Basophils (%) (Auto) 0.6 % (0.0-2.0) Differential Total Cells Counted 100 Neutrophils % (Manual) 89 % (45-75) Lymphocytes % (Manual) 11 % (20-45) Monocytes % (Manual) 0 % (1-10) Eosinophils % (Manual) 0 % (0-3) Basophils % (Manual) 0 % (0-2) Band Neutrophils 0 % (0-8) Platelet Estimate Adequate Platelet Morphology Normal Red Blood Cell Morphology Anisocytosis 1+ Prothrombin Time 12.5 SEC (9.30-11.50) 12.9 SEC (9.30-11.50) Prothromb Time International Ratio 1.2 (0.9-1.1) 1.2 (0.9-1.1) Activated Partial Thromboplast Time 40 SEC (23-33) Sodium Level 143 MMOL/L (136-145) Potassium Level 3.5 MMOL/L (3.5-5.1) Chloride Level 104 MMOL/L (98-107) Carbon Dioxide Level 26 MMOL/L (21-32) Anion Gap 13 mmol/L (5-15) Blood Urea Nitrogen 8 mg/dL (7-18) Creatinine 0.7 MG/DL (0.55-1.30) Estimat Glomerular Filtration Rate > 60 mL/min (>60) Glucose Level 140 MG/DL (74-106) Calcium Level 8.8 MG/DL (8.5-10.1) Total Bilirubin 0.4 MG/DL (0.2-1.0) Aspartate Amino Transf (AST/SGOT) 18 U/L (15-37) Alanine Aminotransferase (ALT/SGPT) 21 U/L (12-78) Alkaline Phosphatase 163 U/L (46-116) Total Protein 7.5 G/DL (6.4-8.2) Albumin 3.0 G/DL (3.4-5.0) Globulin 4.5 g/dL Albumin/Globulin Ratio 0.7 (1.0-2.7) Urine Color Red Urine Appearance Very cloudy Urine pH 7 (4.5-8.0) Urine Specific [place] 1.010 (1.005-1.035) Urine Protein 4+ (NEGATIVE) Urine Glucose (UA) Negative (NEGATIVE) Urine Ketones 1+ (NEGATIVE) Urine Blood 5+ (NEGATIVE) Urine Nitrite Negative (NEGATIVE) Urine Bilirubin Negative (NEGATIVE) Urine Urobilinogen Normal MG/DL (0.0-1.0) Urine Leukocyte Esterase Negative (NEGATIVE) Urine RBC Tntc /HPF (0 - 0) Urine WBC 5-10 /HPF (0 - 0) Urine Squamous Epithelial Cells Occasional /LPF Urine Bacteria Few /HPF (NONE) Lactic Acid Level 1.30 mmol/L (0.4-2.0) Ammonia < 10 umol/L (11-32) Reticulocyte Count 1.9 % (0.5-2.0) Iron Level 14 ug/dL (50-175) Total Iron Binding Capacity 218 ug/dL (250-450) Percent Iron Saturation 6 % (15-50) Unsaturated Iron Binding 204 ug/dL (112-346) Ferritin 177 NG/ML (8-388) Prostate Specific Antigen 0.39 ng/mL (0.13-4.0) Vitamin B12 Level 446 PG/ML (193-986) Thyroid Stimulating Hormone (TSH) 0.397 uiU/mL (0.358-3.740) Test 09/29/19 04:50 White Blood Count 17.0 K/UL (4.8-10.8) Red Blood Count 3.96 M/UL (4.70-6.10) Hemoglobin 11.2 G/DL (14.2-18.0) Hematocrit 34.0 % (42.0-52.0) Mean Corpuscular Volume 86 FL (80-99) Mean Corpuscular Hemoglobin 28.2 PG (27.0-31.0) Mean Corpuscular Hemoglobin Concent 32.9 G/DL (32.0-36.0) Red Cell Distribution Width 14.2 % (11.6-14.8) Platelet Count 251 K/UL (150-450) Mean Platelet Volume 7.2 FL (6.5-10.1) Neutrophils (%) (Auto) % (45.0-75.0) Lymphocytes (%) (Auto) % (20.0-45.0) Monocytes (%) (Auto) % (1.0-10.0) Eosinophils (%) (Auto) % (0.0-3.0) Basophils (%) (Auto) % (0.0-2.0) Differential Total Cells Counted 100 Neutrophils % (Manual) 88 % (45-75) Lymphocytes % (Manual) 7 % (20-45) Monocytes % (Manual) 5 % (1-10) Eosinophils % (Manual) 0 % (0-3) Basophils % (Manual) 0 % (0-2) Band Neutrophils 0 % (0-8) Platelet Estimate Adequate Platelet Morphology Normal Sodium Level 142 MMOL/L (136-145) Potassium Level 3.1 MMOL/L (3.5-5.1) Chloride Level 105 MMOL/L (98-107) Carbon Dioxide Level 27 MMOL/L (21-32) Anion Gap 10 mmol/L (5-15) Blood Urea Nitrogen 13 mg/dL (7-18) Creatinine 0.6 MG/DL (0.55-1.30) Estimat Glomerular Filtration Rate > 60 mL/min (>60) Glucose Level 131 MG/DL (74-106) Hemoglobin A1c 6.8 % (4.3-6.0) Calcium Level 8.8 MG/DL (8.5-10.1) Height (Feet): 5 Height (Inches): 7.00 Weight (Pounds): 162 Objective Physical Exam General Appearance: lethargic Lines, tubes and drains: central line HEENT: atraumatic Neck: supple Respiratory/Chest: normal breath sounds Cardiovascular/Chest: normal rate Abdomen: non tender, soft Extremities: normal inspection Skin Exam: warm/dry Neurologic: no motor/sensory deficits : ++ Og Valdes MD Sep 29, 2019 15:47
--- NOTE | 2019-09-29 15:50 | NUR ---
CHARGE NURSE NOTES: Pt BP high= 174/86, hydralazine tab given, w/ Temp of 100.4, left message to Dr Priest for any additional test & request for anti-pyretic meds.
[2019-09-29 16:00] VITALS: BP 174/86
--- NOTE | 2019-09-29 16:55 | NUR ---
*-* INSURANCE *-* ALL AVAILABLE CLINICALS HAVE BEEN FAXED TO: [employer] AUTH#[id number] FAX ALL CLINICALS TO [phone]
--- NOTE | 2019-09-29 17:49 | NUR ---
NURSE NOTES: PATIENT CONTINUES TO HAVE INTERMITTENT CONFUSION. PCP AWARE. DUFFY OUTPUT STILL RED. NO CLOTS PRESENT. IMPROVING IN COLOR. NOT DARK THIS A.M. AMBULATED PATIENT TO BATHROOM SEVERAL TIMES. USING CALL LIGHT MORE EFFECTIVELY. BED ALARM ON. BED IN LOW AND LOCKED POSITION. CALL LIGHT WITHIN REACH.
--- NOTE | 2019-09-29 18:14 | NUR ---
NURSE NOTES: BP REMAINS ELEVATED AFTER HYDRALAZINE GIVEN. BP 177/87 HR 108. ADMINISTERED CLONIDINE 0.1 MG PO ORDERED PRN.
--- NOTE | 2019-09-29 19:50 | NUR ---
NURSES NOTE: Pt in bed, A/OX2, denies pain at this moment. No outward s/s of distress noted. Breathing pattern is even and unlabored on RA. Assisted pt to the restroom. BM x4 for the day. Formed. Espinal in place, patent. Urine is light red in color. IV fluids discontinued. All due meds will be given. Bed at lowest level, bed alarm on, call light within reach. Pt will continue to be monitored.
[2019-09-29 20:00] VITALS: BP 171/86
[2019-09-29] MEDS ORDERED: Cefepime HCl 2 GM in D5W 55 ML IVPB SCH (21:00)
[2019-09-29] MEDS: Cefepime 2gm/D5W 110ml IV SCH ×2 (21:43)
[2019-09-29] MEDS: Tamsulosin 0.4mg cap ORAL SCH (21:44)
[2019-09-30] VITALS: BP 185/89
[2019-09-30] MEDS: HydrALAZINE 25mg tab ORAL PRN (02:41)
--- NOTE | 2019-09-30 03:48 | NUR ---
NURSES NOTE: Dr Priest called and message left with paging answering service. Pt positive for septicemia. Microbiology called at apprx [phone].
--- NOTE | 2019-09-30 03:50 | NUR ---
NURSES NOTE: Dr Priest called and message left with paging answering service. Pt positive for septicemia. Microbiology called at apprx [phone]. Will endorse to AM nurse to f/u as well.
[2019-09-30 04:00] VITALS: BP 113/75
[2019-09-30] MEDS: Glimepiride 1mg tab ORAL SCH (05:38)
[2019-09-30] MEDS: metFORMIN 500mg tab ORAL SCH ×2 (05:38→17:07)
[2019-09-30] MEDS: Heparin 5000 units/ml inj SUBQ SCH ×4 (05:39→22:00)
[2019-09-30] MEDS: NovoLOG Insulin Flexpen SUBQ SCH ×4 (05:39→21:00)
[2019-09-30 06:50] LABS: BASOPHILS % (AUTO) 0.3 % (0.0-2.0); HEMATOCRIT 33.9 % (42.0-52.0); HEMOGLOBIN 11.3 G/DL (14.2-18.0); LYMPHOCYTES % (AUTO) 11.1 % (20.0-45.0); MEAN CORPUSCULAR VOLUME 85 FL (80-99); MONOCYTES % (AUTO) 4.6 % (1.0-10.0); PLATELET COUNT 263 K/UL (150-450); RED BLOOD COUNT 3.99 M/UL (4.70-6.10); RED CELL DISTRIBUTION WIDTH 13.8 % (11.6-14.8); WHITE BLOOD COUNT 12.9 K/UL (4.8-10.8)
--- NOTE | 2019-09-30 07:05 | NUR ---
NURSES NOTE: Dr Priest called again at 0700 and another message left with paging answering service. Pt positive for septicemia. Microbiology called at apprx [phone].
[2019-09-30 07:08] LABS: ANION GAP 12 mmol/L (5-15); BLOOD UREA NITROGEN 12 mg/dL (7-18); CARBON DIOXIDE 26 MMOL/L (21-32); CHLORIDE 104 MMOL/L (98-107); CREATININE 0.6 MG/DL (0.55-1.30); POTASSIUM 3.1 MMOL/L (3.5-5.1); SODIUM 141 MMOL/L (136-145)
[2019-09-30 08:00] VITALS: BP 142/74
--- NOTE | 2019-09-30 08:00 | NUR ---
NURSE NOTES: Received report from Michael BADILLO, pt a/a/o laying in bed with no signs of distress or other issues at this time. no skin issues noted at this time. Espinal cath in place draining well, overnight shift out put:1300ml. last accucheck:91. per shift production associate report RN notified Dr. Briggs that pt tested positive for septicemia. call light within reach, bed in lowest position, side rales up x2. I will f/u as needed
--- NOTE | 2019-09-30 08:15 | NUR ---
HAND OFF: Report given to JUSTINO Sanfrod. Endorsed that Dr Priest called back in regards to new dx of septemia...NNO. Addendum: 09/30/19 at 0817 by Karlie Adams RN Septicemia
[2019-09-30] MEDS: Cefepime 2gm/D5W 110ml IV SCH ×6 (09:20→21:14)
[2019-09-30 12:00] VITALS: BP 142/75
--- NOTE | 2019-09-30 13:05 | Hematology/Onc Progress Note ---
Assessment/Plan Assessment/Plan Assessment/Plan: # Leukocytosis 2/2 Sepsisfrom uti --> for uti, continue on abx --> peripheral smear has been noted --> labs have been reviewed --> on rocephin --> wbc trend: 12.9 --> positive for septicemia # Anemia of chronic disease v from hematuira --> r/o hemolysis --> no evidence of gi bleed is noted --> transfuse on prn basis --> hgb trend: 11.3 # Hematuria is likely related to UTI --> make sure to draw psa, robinson rn --> r/o jo trauma # Suspected left pyelonephritis/bacterial nephritis. No abscess or evidence of obstructive nephropathy --> on abx # DM --> a1c goal <8% # HTN --> sbp goal 140 # Hyperlipidemia. --> statin as needed ROBINSON Rn and appreciate consultation Subjective Allergies: Coded Allergies: NO KNOWN DRUG ALLERGIES (Unverified Allergy, Unknown, 01/01/15) Subjective 09/29: continues to be confused, no bleeding, on rocephin 09/30: positive for septicemia, ra, no sob, jo Objective Objective Current Medications Medications (Trade) Dose Ordered Sig/Leilani Route PRN Reason Start Time Stop Time Status Last Admin Dose Admin Acetaminophen (Tylenol) 650 mg Q4H PRN ORAL Mild Pain/Temp > 100.5 09/29/19 16:15 10/29/19 16:14 09/29/19 16:32 Amlodipine Besylate (Norvasc) 5 mg DAILY ORAL 09/30/19 09:00 10/30/19 08:59 09/30/19 09:20 Atorvastatin Calcium (Lipitor) 10 mg BEDTIME ORAL 09/28/19 21:00 10/28/19 20:59 09/29/19 21:43 Cefepime HCl 2 gm/ Dextrose 110 ml @ 220 mls/hr EVERY 12 HOURS IV 09/29/19 21:00 10/06/19 20:59 09/30/19 09:20 Clonidine HCl (Catapres Tab) 0.1 mg EVERY 6 HOURS PRN ORAL SBP>160 mm Hg 09/29/19 06:15 10/28/19 18:14 09/30/19 00:45 Dextrose (Dextrose 50%) 25 ml Q30M PRN IV Hypoglycemia 09/28/19 14:00 10/28/19 13:59 Dextrose (Dextrose 50%) 50 ml Q30M PRN IV Hypoglycemia 09/28/19 14:00 10/28/19 13:59 Finasteride (Proscar) 5 mg QHS ORAL 09/28/19 21:00 10/28/19 20:59 09/29/19 21:43 Gabapentin (Neurontin) 300 mg BEDTIME ORAL 09/28/19 21:00 10/28/19 20:59 09/29/19 21:44 Glimepiride (AmaryL) 4 mg BEFORE BREAKFAST ORAL 09/29/19 06:30 10/29/19 06:29 09/30/19 05:38 Heparin Sodium (Porcine) (Heparin 5000 units/ml) 5,000 units EVERY 8 HOURS SUBQ 09/28/19 14:00 10/28/19 13:59 09/30/19 05:39 Hydralazine HCl (Apresoline) 25 mg Q6H PRN ORAL SBP>160 mm Hg 09/28/19 14:00 10/28/19 13:59 09/30/19 02:41 Insulin Aspart (NovoLOG) BEFORE MEALS AND HS SUBQ 09/28/19 16:30 10/28/19 16:29 09/28/19 16:52 Metformin HCl (Glucophage) 500 mg BIAC ORAL 09/28/19 16:30 10/28/19 16:29 09/30/19 05:38 Morphine Sulfate (Morphine Sulfate) 1 mg Q6H PRN IVP pain 09/28/19 14:00 10/05/19 13:59 09/29/19 11:41 Potassium Chloride 100 ml @ 100 mls/hr Q1H IVPB 09/30/19 13:00 09/30/19 15:59 Tamsulosin HCl (Flomax) 0.4 mg BEDTIME ORAL 09/28/19 21:00 10/28/19 20:59 09/29/19 21:44 Last 24 Hour Vital Signs Date Time Temp Pulse Resp B/P (MAP) Pulse Ox O2 Delivery O2 Flow Rate FiO2 09/30/19 12:00 98.3 87 20 142/75 (97) 97 09/30/19 09:20 101 142/74 09/30/19 09:00 Room Air 09/30/19 08:00 99.3 101 20 142/74 (96) 97 09/30/19 04:00 98.0 89 18 113/75 (88) 95 09/30/19 02:41 171/66 09/30/19 00:45 185/89 09/30/19 00:00 98.4 89 17 185/89 (121) 99 09/29/19 21:00 Room Air 09/29/19 20:00 98.2 92 18 171/86 (114) 96 09/29/19 18:10 177/87 09/29/19 17:02 99.8 09/29/19 16:00 100.4 99 18 174/86 (115) 98 09/29/19 15:55 174/86 09/29/19 12:11 97.9 09/29/19 12:00 98.9 120 20 143/62 (89) 98 09/29/19 09:00 Room Air 09/29/19 08:00 97.9 121 18 156/78 (104) 92 09/29/19 06:41 95 155/78 09/29/19 04:00 98.3 103 20 180/79 (112) 95 09/29/19 03:35 177/78 09/29/19 00:00 98.2 108 20 177/78 (111) 96 09/28/19 21:00 Room Air 09/28/19 20:41 180/85 09/28/19 20:00 98.4 106 17 180/85 (116) 96 09/28/19 18:29 164/71 09/28/19 16:00 106 162/85 (110) 09/28/19 15:45 97.1 109 18 171/80 (110) 97 09/28/19 15:19 Room Air 09/28/19 14:35 170/80 Intake and Output 09/29/19 09/30/19 19:00 07:00 Intake Total 700 ml Output Total 800 ml 1300 ml Balance -100 ml -1300 ml IV Total 700 ml Output Urine Total 800 ml 1300 ml # Bowel Movements 4 5 Labs Test 09/28/19 05:54 09/28/19 06:26 09/28/19 18:20 09/28/19 19:50 White Blood Count 16.9 K/UL (4.8-10.8) Red Blood Count 4.16 M/UL (4.70-6.10) Hemoglobin 12.2 G/DL (14.2-18.0) Hematocrit 34.7 % (42.0-52.0) Mean Corpuscular Volume 83 FL (80-99) Mean Corpuscular Hemoglobin 29.2 PG (27.0-31.0) Mean Corpuscular Hemoglobin Concent 35.1 G/DL (32.0-36.0) Red Cell Distribution Width 14.7 % (11.6-14.8) Platelet Count 279 K/UL (150-450) Mean Platelet Volume 7.5 FL (6.5-10.1) Neutrophils (%) (Auto) 84.7 % (45.0-75.0) Lymphocytes (%) (Auto) 8.2 % (20.0-45.0) Monocytes (%) (Auto) 6.5 % (1.0-10.0) Eosinophils (%) (Auto) 0.0 % (0.0-3.0) Basophils (%) (Auto) 0.6 % (0.0-2.0) Differential Total Cells Counted 100 Neutrophils % (Manual) 89 % (45-75) Lymphocytes % (Manual) 11 % (20-45) Monocytes % (Manual) 0 % (1-10) Eosinophils % (Manual) 0 % (0-3) Basophils % (Manual) 0 % (0-2) Band Neutrophils 0 % (0-8) Other Cell Type Pathologist review Platelet Estimate Adequate Platelet Morphology Normal Red Blood Cell Morphology Anisocytosis 1+ Prothrombin Time 12.5 SEC (9.30-11.50) 12.9 SEC (9.30-11.50) Prothromb Time International Ratio 1.2 (0.9-1.1) 1.2 (0.9-1.1) Activated Partial Thromboplast Time 40 SEC (23-33) Sodium Level 143 MMOL/L (136-145) Potassium Level 3.5 MMOL/L (3.5-5.1) Chloride Level 104 MMOL/L (98-107) Carbon Dioxide Level 26 MMOL/L (21-32) Anion Gap 13 mmol/L (5-15) Blood Urea Nitrogen 8 mg/dL (7-18) Creatinine 0.7 MG/DL (0.55-1.30) Estimat Glomerular Filtration Rate > 60 mL/min (>60) Glucose Level 140 MG/DL (74-106) Calcium Level 8.8 MG/DL (8.5-10.1) Total Bilirubin 0.4 MG/DL (0.2-1.0) Aspartate Amino Transf (AST/SGOT) 18 U/L (15-37) Alanine Aminotransferase (ALT/SGPT) 21 U/L (12-78) Alkaline Phosphatase 163 U/L (46-116) Total Protein 7.5 G/DL (6.4-8.2) Albumin 3.0 G/DL (3.4-5.0) Globulin 4.5 g/dL Albumin/Globulin Ratio 0.7 (1.0-2.7) Urine Color Red Urine Appearance Very cloudy Urine pH 7 (4.5-8.0) Urine Specific [place] 1.010 (1.005-1.035) Urine Protein 4+ (NEGATIVE) Urine Glucose (UA) Negative (NEGATIVE) Urine Ketones 1+ (NEGATIVE) Urine Blood 5+ (NEGATIVE) Urine Nitrite Negative (NEGATIVE) Urine Bilirubin Negative (NEGATIVE) Urine Urobilinogen Normal MG/DL (0.0-1.0) Urine Leukocyte Esterase Negative (NEGATIVE) Urine RBC Tntc /HPF (0 - 0) Urine WBC 5-10 /HPF (0 - 0) Urine Squamous Epithelial Cells Occasional /LPF Urine Bacteria Few /HPF (NONE) Lactic Acid Level 1.30 mmol/L (0.4-2.0) Ammonia < 10 umol/L (11-32) Reticulocyte Count 1.9 % (0.5-2.0) Iron Level 14 ug/dL (50-175) Total Iron Binding Capacity 218 ug/dL (250-450) Percent Iron Saturation 6 % (15-50) Unsaturated Iron Binding 204 ug/dL (112-346) Ferritin 177 NG/ML (8-388) Carcinoembryonic Antigen 5.6 ng/mL (0.0-4.7) Prostate Specific Antigen 0.39 ng/mL (0.13-4.0) Vitamin B12 Level 446 PG/ML (193-986) Thyroid Stimulating Hormone (TSH) 0.397 uiU/mL (0.358-3.740) Test 09/29/19 04:50 09/30/19 05:26 White Blood Count 17.0 K/UL (4.8-10.8) 12.9 K/UL (4.8-10.8) Red Blood Count 3.96 M/UL (4.70-6.10) 3.99 M/UL (4.70-6.10) Hemoglobin 11.2 G/DL (14.2-18.0) 11.3 G/DL (14.2-18.0) Hematocrit 34.0 % (42.0-52.0) 33.9 % (42.0-52.0) Mean Corpuscular Volume 86 FL (80-99) 85 FL (80-99) Mean Corpuscular Hemoglobin 28.2 PG (27.0-31.0) 28.3 PG (27.0-31.0) Mean Corpuscular Hemoglobin Concent 32.9 G/DL (32.0-36.0) 33.3 G/DL (32.0-36.0) Red Cell Distribution Width 14.2 % (11.6-14.8) 13.8 % (11.6-14.8) Platelet Count 251 K/UL (150-450) 263 K/UL (150-450) Mean Platelet Volume 7.2 FL (6.5-10.1) 7.3 FL (6.5-10.1) Neutrophils (%) (Auto) % (45.0-75.0) 84.0 % (45.0-75.0) Lymphocytes (%) (Auto) % (20.0-45.0) 11.1 % (20.0-45.0) Monocytes (%) (Auto) % (1.0-10.0) 4.6 % (1.0-10.0) Eosinophils (%) (Auto) % (0.0-3.0) 0.0 % (0.0-3.0) Basophils (%) (Auto) % (0.0-2.0) 0.3 % (0.0-2.0) Differential Total Cells Counted 100 Neutrophils % (Manual) 88 % (45-75) Lymphocytes % (Manual) 7 % (20-45) Monocytes % (Manual) 5 % (1-10) Eosinophils % (Manual) 0 % (0-3) Basophils % (Manual) 0 % (0-2) Band Neutrophils 0 % (0-8) Platelet Estimate Adequate Platelet Morphology Normal Sodium Level 142 MMOL/L (136-145) 141 MMOL/L (136-145) Potassium Level 3.1 MMOL/L (3.5-5.1) 3.1 MMOL/L (3.5-5.1) Chloride Level 105 MMOL/L (98-107) 104 MMOL/L (98-107) Carbon Dioxide Level 27 MMOL/L (21-32) 26 MMOL/L (21-32) Anion Gap 10 mmol/L (5-15) 12 mmol/L (5-15) Blood Urea Nitrogen 13 mg/dL (7-18) 12 mg/dL (7-18) Creatinine 0.6 MG/DL (0.55-1.30) 0.6 MG/DL (0.55-1.30) Estimat Glomerular Filtration Rate > 60 mL/min (>60) > 60 mL/min (>60) Glucose Level 131 MG/DL (74-106) 98 MG/DL (74-106) Hemoglobin A1c 6.8 % (4.3-6.0) Calcium Level 8.8 MG/DL (8.5-10.1) 9.0 MG/DL (8.5-10.1) Height (Feet): 5 Height (Inches): 7.00 Weight (Pounds): 162 Objective Physical Exam General Appearance: lethargic Lines, tubes and drains: central line HEENT: atraumatic Neck: supple Respiratory/Chest: normal breath sounds Cardiovascular/Chest: normal rate Abdomen: non tender, soft Extremities: normal inspection Skin Exam: warm/dry Neurologic: no motor/sensory deficits : ++ Og Valdes MD Sep 30, 2019 13:05
--- NOTE | 2019-09-30 14:56 | General Progress Note ---
Assessment/Plan Problem List: (1) Urine retention ICD Codes: R33.9 - Retention of urine, unspecified SNOMED: 781306890 (2) Anemia ICD Codes: D64.9 - Anemia, unspecified SNOMED: 859885911 (3) Malnutrition ICD Codes: E46 - Unspecified protein-calorie malnutrition SNOMED: 93730633 (4) Leukocytosis ICD Codes: D72.829 - Elevated white blood cell count, unspecified SNOMED: 449239697, 664788184 (5) Hematuria ICD Codes: R31.9 - Hematuria, unspecified SNOMED: 55944322 Status: unchanged Assessment/Plan: pt diet abx uro f/u cbc bmp am Subjective Constitutional: Reports: weakness Allergies: Coded Allergies: NO KNOWN DRUG ALLERGIES (Unverified Allergy, Unknown, 01/01/15) All Systems: reviewed and negative except above Subjective sl abd pain Objective Last 24 Hour Vital Signs Date Time Temp Pulse Resp B/P (MAP) Pulse Ox O2 Delivery O2 Flow Rate FiO2 09/30/19 12:00 98.3 87 20 142/75 (97) 97 09/30/19 09:20 101 142/74 09/30/19 09:00 Room Air 09/30/19 08:00 99.3 101 20 142/74 (96) 97 09/30/19 04:00 98.0 89 18 113/75 (88) 95 09/30/19 02:41 171/66 09/30/19 00:45 185/89 09/30/19 00:00 98.4 89 17 185/89 (121) 99 09/29/19 21:00 Room Air 09/29/19 20:00 98.2 92 18 171/86 (114) 96 09/29/19 18:10 177/87 09/29/19 17:02 99.8 09/29/19 16:00 100.4 99 18 174/86 (115) 98 09/29/19 15:55 174/86 Intake and Output 09/29/19 09/30/19 19:00 07:00 Intake Total 700 ml Output Total 800 ml 1300 ml Balance -100 ml -1300 ml IV Total 700 ml Output Urine Total 800 ml 1300 ml # Bowel Movements 4 5 Laboratory Tests 09/30/19 05:26: White Blood Count 12.9H, Red Blood Count 3.99L, Hemoglobin 11.3L, Hematocrit 33.9L, Mean Corpuscular Volume 85, Mean Corpuscular Hemoglobin 28.3, Mean Corpuscular Hemoglobin Concent 33.3, Red Cell Distribution Width 13.8, Platelet Count 263, Mean Platelet Volume 7.3, Neutrophils (%) (Auto) 84.0H, Lymphocytes ( %) (Auto) 11.1L, Monocytes (%) (Auto) 4.6, Eosinophils (%) (Auto) 0.0, Basophils (%) (Auto) 0.3, Sodium Level 141, Potassium Level 3.1L, Chloride Level 104, Carbon Dioxide Level 26, Anion Gap 12, Blood Urea Nitrogen 12, Creatinine 0.6, Estimat Glomerular Filtration Rate > 60, Glucose Level 98, Calcium Level 9.0 Height (Feet): 5 Height (Inches): 7.00 Weight (Pounds): 162 General Appearance: lethargic EENT: normal ENT inspection Neck: normal alignment Cardiovascular: normal peripheral pulses, normal rate, regular rhythm Respiratory/Chest: chest wall non-tender, lungs clear, normal breath sounds Abdomen: normal bowel sounds, non tender, soft Extremities: normal inspection Edema: no edema noted Arm (L), no edema noted Arm (R), no edema noted Leg (L), no edema noted Leg (R), no edema noted Pedal (L), no edema noted Pedal (R), no edema noted Generalized Neurologic: motor weakness Skin: normal pigmentation, warm/dry Objective jo in place Erwin May DO Sep 30, 2019 14:56
--- NOTE | 2019-09-30 15:13 | Infectious Diseases Prog Note ---
Assessment/Plan Assessment/Plan Assessment/Plan: A: +ve blood Cx : GNR Sepsis Leukocytosis febrile , sp UTI - HU - CT: Suspected left pyelonephritis/bacterial nephritis. No abscess or evidence of obstructive nephropathy no evid of sinusitis (clinically, no sinus tenderness ) - CT of head : Sinusitis Hyperlipidemia. Hypertension. History of back injury and back pain. Diabetes. P: cont pt on Cefepime # 1 09/29 SP Rocephin # 2 CMP, CBC Monitor CBC Monitor CMP Monitor CXR Uro fup Thank you Subjective Allergies: Coded Allergies: NO KNOWN DRUG ALLERGIES (Unverified Allergy, Unknown, 01/01/15) Subjective fever + +ve blood Cx : GNR Objective Vital Signs Last 24 Hour Vital Signs Date Time Temp Pulse Resp B/P (MAP) Pulse Ox O2 Delivery O2 Flow Rate FiO2 09/30/19 12:00 98.3 87 20 142/75 (97) 97 09/30/19 09:20 101 142/74 09/30/19 09:00 Room Air 09/30/19 08:00 99.3 101 20 142/74 (96) 97 09/30/19 04:00 98.0 89 18 113/75 (88) 95 09/30/19 02:41 171/66 09/30/19 00:45 185/89 09/30/19 00:00 98.4 89 17 185/89 (121) 99 09/29/19 21:00 Room Air 09/29/19 20:00 98.2 92 18 171/86 (114) 96 09/29/19 18:10 177/87 09/29/19 17:02 99.8 09/29/19 16:00 100.4 99 18 174/86 (115) 98 09/29/19 15:55 174/86 Height (Feet): 5 Height (Inches): 7.00 Weight (Pounds): 162 HEENT: anicteric Respiratory/Chest: normal breath sounds Cardiovascular: regular rhythm Abdomen: normal bowel sounds Microbiology Date/Time Source Procedure Growth Status 09/28/19 18:35 Blood Blood Culture - Preliminary NO GROWTH AFTER 24 HOURS Resulted 09/28/19 18:20 Blood Blood Culture - Preliminary Gram Negative Demond Resulted Laboratory Tests Test 09/30/19 05:26 White Blood Count 12.9 K/UL (4.8-10.8) H Red Blood Count 3.99 M/UL (4.70-6.10) L Hemoglobin 11.3 G/DL (14.2-18.0) L Hematocrit 33.9 % (42.0-52.0) L Mean Corpuscular Volume 85 FL (80-99) Mean Corpuscular Hemoglobin 28.3 PG (27.0-31.0) Mean Corpuscular Hemoglobin Concent 33.3 G/DL (32.0-36.0) Red Cell Distribution Width 13.8 % (11.6-14.8) Platelet Count 263 K/UL (150-450) Mean Platelet Volume 7.3 FL (6.5-10.1) Neutrophils (%) (Auto) 84.0 % (45.0-75.0) H Lymphocytes (%) (Auto) 11.1 % (20.0-45.0) L Monocytes (%) (Auto) 4.6 % (1.0-10.0) Eosinophils (%) (Auto) 0.0 % (0.0-3.0) Basophils (%) (Auto) 0.3 % (0.0-2.0) Sodium Level 141 MMOL/L (136-145) Potassium Level 3.1 MMOL/L (3.5-5.1) L Chloride Level 104 MMOL/L (98-107) Carbon Dioxide Level 26 MMOL/L (21-32) Anion Gap 12 mmol/L (5-15) Blood Urea Nitrogen 12 mg/dL (7-18) Creatinine 0.6 MG/DL (0.55-1.30) Estimat Glomerular Filtration Rate > 60 mL/min (>60) Glucose Level 98 MG/DL (74-106) Calcium Level 9.0 MG/DL (8.5-10.1) Current Medications Medications (Trade) Dose Ordered Sig/Leilani Route PRN Reason Start Time Stop Time Status Last Admin Dose Admin Acetaminophen (Tylenol) 650 mg Q4H PRN ORAL Mild Pain/Temp > 100.5 09/29/19 16:15 10/29/19 16:14 09/29/19 16:32 Amlodipine Besylate (Norvasc) 5 mg DAILY ORAL 09/30/19 09:00 10/30/19 08:59 09/30/19 09:20 Atorvastatin Calcium (Lipitor) 10 mg BEDTIME ORAL 09/28/19 21:00 10/28/19 20:59 09/29/19 21:43 Cefepime HCl 2 gm/ Dextrose 110 ml @ 220 mls/hr EVERY 12 HOURS IV 09/29/19 21:00 10/06/19 20:59 09/30/19 09:20 Clonidine HCl (Catapres Tab) 0.1 mg EVERY 6 HOURS PRN ORAL SBP>160 mm Hg 09/29/19 06:15 10/28/19 18:14 09/30/19 00:45 Dextrose (Dextrose 50%) 25 ml Q30M PRN IV Hypoglycemia 09/28/19 14:00 10/28/19 13:59 Dextrose (Dextrose 50%) 50 ml Q30M PRN IV Hypoglycemia 09/28/19 14:00 10/28/19 13:59 Finasteride (Proscar) 5 mg QHS ORAL 09/28/19 21:00 10/28/19 20:59 09/29/19 21:43 Gabapentin (Neurontin) 300 mg BEDTIME ORAL 09/28/19 21:00 10/28/19 20:59 09/29/19 21:44 Glimepiride (AmaryL) 4 mg BEFORE BREAKFAST ORAL 09/29/19 06:30 10/29/19 06:29 09/30/19 05:38 Heparin Sodium (Porcine) (Heparin 5000 units/ml) 5,000 units EVERY 8 HOURS SUBQ 09/28/19 14:00 10/28/19 13:59 09/30/19 05:39 Hydralazine HCl (Apresoline) 25 mg Q6H PRN ORAL SBP>160 mm Hg 09/28/19 14:00 10/28/19 13:59 09/30/19 02:41 Insulin Aspart (NovoLOG) BEFORE MEALS AND HS SUBQ 09/28/19 16:30 10/28/19 16:29 09/28/19 16:52 Metformin HCl (Glucophage) 500 mg BIAC ORAL 09/28/19 16:30 10/28/19 16:29 09/30/19 05:38 Morphine Sulfate (Morphine Sulfate) 1 mg Q6H PRN IVP pain 09/28/19 14:00 10/05/19 13:59 09/29/19 11:41 Potassium Chloride 100 ml @ 100 mls/hr Q1H IVPB 09/30/19 13:00 09/30/19 15:59 09/30/19 13:25 Tamsulosin HCl (Flomax) 0.4 mg BEDTIME ORAL 09/28/19 21:00 10/28/19 20:59 09/29/19 21:44 Pavan Priest MD Sep 30, 2019 15:13
[2019-09-30 16:00] VITALS: BP 147/78
--- NOTE | 2019-09-30 16:59 | NUR ---
CASE MANAGEMENT: INITIAL REVIEW 53YR OLD MALE FROM HOME CC: MALE UROGENITAL PROBLEM SI:GROSS HEMATURIA . BLADDER OBSTRUCTION 98.7 125 20 162/78 97% ON RA WBC 16.9 H/H 12.2/34.7 BG 140 PT/INR 12.5/1.2 PTT40 IS: IVF NS BOLUS X1 IV HYDRALAZINE X2 TYLENOL PO X1 CATAPRES PO X1 CT ABD/PEL X1 CT HEAD X1 \: 3E MED SURG UNIT CASE MANAGEMENT: REVIEW 09/29/19 SI:GROSS HEMATURIA . BLADDER OBSTRUCTION 100.4 99 18 174/86 98% ON RA K+3.1 WBC 17.0 H/H 11.2/34.0 IS: IV CEFEPIME BID NORVASC PO QD CATAPRES Q6HR/PRN METFORMIN P BIAC FLOMAX PO QHS \: 3E MED SURG UNIT CASE MANAGEMENT: REVIEW 09/30/19 SI:GROSS HEMATURIA . BLADDER OBSTRUCTION 99.3 101 20 142/74 97% ON RA WBC 12.9 H/H 11.3/33.9 K+ 3.1 IS: IV CEFEPIME BID NORVASC PO QD CATAPRES Q6HR/PRN METFORMIN P BIAC FLOMAX PO QHS \: 3E MED SURG UNIT PLAN: OB STOOL - PENDING
--- NOTE | 2019-09-30 17:21 | NUR ---
*-* INSURANCE *-* ALL AVAILABLE CLINICALS HAVE BEEN FAXED TO: [email or web address] AUTH#[id number] FAX ALL CLINICALS TO [phone]
--- NOTE | 2019-09-30 19:29 | NUR ---
NURSE NOTES: Received report from JUSTINO Sanford. Pt is awake, lying semi-baca's; comfortably resting. No signs of acute distress noted. Pt denies any pain at this time. AOx3; able to make needs known. Checked IV site, line, and rate; patent and running TKO. No erythema, bleeding, or infiltration noted. Bed at lowest position. Brakes on. Siderails up x2. Call light within reach. Will continue to monitor.
--- NOTE | 2019-09-30 19:31 | NUR ---
HAND-OFF: Report given to Emma BADILLO, pt in stable condition. total Espinal cath out put: 800ml
[2019-09-30 20:00] VITALS: BP 150/85
[2019-09-30] MEDS: Tamsulosin 0.4mg cap ORAL SCH (21:14)
--- NOTE | 2019-09-30 22:00 | NUR ---
NURSE NOTES: Pt's BS was at 65. Then rechecked it, BS was at 61. Asked the pt if he ate dinner and he said no so RN gave him orange juice, PB&J, milk, and ham and cheese sandwich. Rechecked pt's BS at 15 minutes and it went up to 74. Rechecked it again after 45 minutes and it went up to 104. RN did not give any insulin at the time.
[2019-10-01] VITALS: BP 137/70
[2019-10-01 04:00] VITALS: BP 153/78
[2019-10-01] MEDS: Heparin 5000 units/ml inj SUBQ SCH (05:35)
[2019-10-01] MEDS: NovoLOG Insulin Flexpen SUBQ SCH (05:35)
[2019-10-01 06:09] LABS: ANION GAP 11 mmol/L (5-15); BLOOD UREA NITROGEN 16 mg/dL (7-18); CALCIUM 9.1 MG/DL (8.5-10.1); CARBON DIOXIDE 27 MMOL/L (21-32); CHLORIDE 108 MMOL/L (98-107); CREATININE 0.8 MG/DL (0.55-1.30); POTASSIUM 4.1 MMOL/L (3.5-5.1); SODIUM 146 MMOL/L (136-145)
[2019-10-01] MEDS: metFORMIN 500mg tab ORAL SCH (06:30)
[2019-10-01] MEDS: Glimepiride 1mg tab ORAL SCH (06:30)
[2019-10-01 06:45] LABS: BASOPHILS % (AUTO) 0.7 % (0.0-2.0); EOSINOPHILS % (AUTO) 1.5 % (0.0-3.0); HEMATOCRIT 36.4 % (42.0-52.0); HEMOGLOBIN 11.7 G/DL (14.2-18.0); LYMPHOCYTES % (AUTO) 22.5 % (20.0-45.0); MEAN CORPUSCULAR VOLUME 87 FL (80-99); MONOCYTES % (AUTO) 8.5 % (1.0-10.0); NEUTROPHILS % (AUTO) 66.9 % (45.0-75.0); PLATELET COUNT 284 K/UL (150-450); RED BLOOD COUNT 4.18 M/UL (4.70-6.10); RED CELL DISTRIBUTION WIDTH 14.2 % (11.6-14.8); WHITE BLOOD COUNT 8.3 K/UL (4.8-10.8)
--- NOTE | 2019-10-01 07:44 | NUR ---
NURSE NOTES: Pt's BS was 51. Pt was asymptomatic. Pt was given orange juice at first and was not able to hold it down so gave D50 50 ml instead and rechecked BS within 30 minutes and BS went up to 149. Pt is asymptomatic and tolerated the treatments well. MD made aware of the BS situation and endorsed the plan of care to the day RN.
--- NOTE | 2019-10-01 07:48 | NUR ---
HAND-OFF: Report given to JUSTINO Gaspar. Pt is awake and in stable condition. Plan of care endorsed.
--- NOTE | 2019-10-01 07:58 | NUR ---
NURSE NOTES: Received patient in bed awake. No SOB or acute distress. IV line intact. Espinal catheter intact, urine yellow, but with no orders to insert as endorsed by night RN; charge nurse made aware. For OB stool, specimen cup given and instructed patient. HOB elevated. Bed locked in lowest position. Call light within reach. Will continue plan of care.
[2019-10-01 08:00] VITALS: BP 159/85
[2019-10-01] MEDS: Cefepime 2gm/D5W 110ml IV SCH ×4 (09:00→09:01)
--- NOTE | 2019-10-01 09:34 | NUR ---
*-* INSURANCE *-* ALL AVAILABLE CLINICALS HAVE BEEN FAXED TO: [employer] AUTH#[id number] FAX ALL CLINICALS TO [phone]
--- NOTE | 2019-10-01 10:03 | NUR ---
*-* INSURANCE *-* ALL AVAILABLE CLINICALS HAVE BEEN FAXED TO: [employer] VERNA:STEPHANIE AUTH#[id number] P: [phone] F: [phone]
--- NOTE | 2019-10-01 10:57 | NUR ---
NURSE NOTES: Espinal catheter removed as ordered by Dr Reyes. Patient requesting IV antibiotics to be changed to oral, Dr Priest made aware, awaiting orders.
[2019-10-01] MEDS ORDERED: NS 500ML ONE (11:06)
[2019-10-01] MEDS ORDERED: Tubing IV Secondary IV ONE (11:06)
--- NOTE | 2019-10-01 11:13 | Infectious Diseases Prog Note ---
Assessment/Plan Assessment/Plan Assessment/Plan: A: +ve blood Cx : GNR Sepsis, Sp Leukocytosis, Sp febrile , sp UTI - HU - CT: Suspected left pyelonephritis/bacterial nephritis. No abscess or evidence of obstructive nephropathy no evid of sinusitis (clinically, no sinus tenderness ) - CT of head : Sinusitis Hyperlipidemia. Hypertension. History of back injury and back pain. Diabetes. P: change Cefepime # 2 to Levaquin # 1 ( need to cont w IV ABRx in view that blood cx is not finalized yet but pt refusing ) 09/29 SP Rocephin # 2 Monitor CBC Monitor CMP Monitor CXR Monitor CX Bl Monitor UCx ( delayed) Uro fup Thank you Subjective Allergies: Coded Allergies: NO KNOWN DRUG ALLERGIES (Unverified Allergy, Unknown, 01/01/15) Subjective afebrile pt wants oral AB Rx +ve blood Cx : GNR Objective Vital Signs Last 24 Hour Vital Signs Date Time Temp Pulse Resp B/P (MAP) Pulse Ox O2 Delivery O2 Flow Rate FiO2 10/01/19 09:00 92 159/85 10/01/19 08:00 98.4 92 18 159/85 (109) 98 10/01/19 04:00 99.1 92 18 153/78 (103) 96 10/01/19 00:00 98.5 90 18 137/70 (92) 98 09/30/19 21:00 Room Air 09/30/19 20:00 98.5 79 20 150/85 (106) 98 09/30/19 16:00 98.4 90 20 147/78 (101) 97 09/30/19 12:00 98.3 87 20 142/75 (97) 97 Height (Feet): 5 Height (Inches): 7.00 Weight (Pounds): 162 Respiratory/Chest: normal breath sounds Cardiovascular: regular rhythm Abdomen: no organomegaly Microbiology Date/Time Source Procedure Growth Status 09/28/19 18:35 Blood Blood Culture - Preliminary NO GROWTH AFTER 48 HOURS Resulted 09/28/19 18:20 Blood Blood Culture - Preliminary Gram Negative Demond Resulted 09/29/19 04:00 Urine,Clean Catch Urine Culture - Preliminary NO GROWTH Resulted Laboratory Tests Test 10/01/19 05:20 White Blood Count 8.3 K/UL (4.8-10.8) Red Blood Count 4.18 M/UL (4.70-6.10) L Hemoglobin 11.7 G/DL (14.2-18.0) L Hematocrit 36.4 % (42.0-52.0) L Mean Corpuscular Volume 87 FL (80-99) Mean Corpuscular Hemoglobin 28.0 PG (27.0-31.0) Mean Corpuscular Hemoglobin Concent 32.2 G/DL (32.0-36.0) Red Cell Distribution Width 14.2 % (11.6-14.8) Platelet Count 284 K/UL (150-450) Mean Platelet Volume 6.3 FL (6.5-10.1) L Neutrophils (%) (Auto) 66.9 % (45.0-75.0) Lymphocytes (%) (Auto) 22.5 % (20.0-45.0) Monocytes (%) (Auto) 8.5 % (1.0-10.0) Eosinophils (%) (Auto) 1.5 % (0.0-3.0) Basophils (%) (Auto) 0.7 % (0.0-2.0) Sodium Level 146 MMOL/L (136-145) H Potassium Level 4.1 MMOL/L (3.5-5.1) Chloride Level 108 MMOL/L (98-107) H Carbon Dioxide Level 27 MMOL/L (21-32) Anion Gap 11 mmol/L (5-15) Blood Urea Nitrogen 16 mg/dL (7-18) Creatinine 0.8 MG/DL (0.55-1.30) Estimat Glomerular Filtration Rate > 60 mL/min (>60) Glucose Level 56 MG/DL (74-106) L Calcium Level 9.1 MG/DL (8.5-10.1) Current Medications Medications (Trade) Dose Ordered Sig/Leilani Route PRN Reason Start Time Stop Time Status Last Admin Dose Admin Acetaminophen (Tylenol) 650 mg Q4H PRN ORAL Mild Pain/Temp > 100.5 09/29/19 16:15 10/29/19 16:14 09/29/19 16:32 Amlodipine Besylate (Norvasc) 5 mg DAILY ORAL 09/30/19 09:00 10/30/19 08:59 10/01/19 09:00 Atorvastatin Calcium (Lipitor) 10 mg BEDTIME ORAL 09/28/19 21:00 10/28/19 20:59 09/30/19 21:14 Cefepime HCl 2 gm/ Dextrose 110 ml @ 220 mls/hr EVERY 12 HOURS IV 09/29/19 21:00 10/06/19 20:59 09/30/19 09:20 Clonidine HCl (Catapres Tab) 0.1 mg EVERY 6 HOURS PRN ORAL SBP>160 mm Hg 09/29/19 06:15 10/28/19 18:14 09/30/19 00:45 Dextrose (Dextrose 50%) 25 ml Q30M PRN IV Hypoglycemia 09/28/19 14:00 10/28/19 13:59 Dextrose (Dextrose 50%) 50 ml Q30M PRN IV Hypoglycemia 09/28/19 14:00 10/28/19 13:59 10/01/19 05:30 Finasteride (Proscar) 5 mg QHS ORAL 09/28/19 21:00 10/28/19 20:59 09/30/19 21:14 Gabapentin (Neurontin) 300 mg BEDTIME ORAL 09/28/19 21:00 10/28/19 20:59 09/30/19 21:14 Glimepiride (AmaryL) 4 mg BEFORE BREAKFAST ORAL 09/29/19 06:30 10/29/19 06:29 09/30/19 05:38 Heparin Sodium (Porcine) (Heparin 5000 units/ml) 5,000 units EVERY 8 HOURS SUBQ 09/28/19 14:00 10/28/19 13:59 09/30/19 05:39 Hydralazine HCl (Apresoline) 25 mg Q6H PRN ORAL SBP>160 mm Hg 09/28/19 14:00 10/28/19 13:59 09/30/19 02:41 Insulin Aspart (NovoLOG) BEFORE MEALS AND HS SUBQ 09/28/19 16:30 10/28/19 16:29 09/28/19 16:52 Metformin HCl (Glucophage) 500 mg BIAC ORAL 09/28/19 16:30 10/28/19 16:29 09/30/19 17:07 Morphine Sulfate (Morphine Sulfate) 1 mg Q6H PRN IVP pain 09/28/19 14:00 10/05/19 13:59 09/29/19 11:41 Tamsulosin HCl (Flomax) 0.4 mg BEDTIME ORAL 09/28/19 21:00 10/28/19 20:59 09/30/19 21:14 Pavan Priest MD Oct 01, 2019 11:13
--- NOTE | 2019-10-01 11:46 | General Progress Note ---
Assessment/Plan Problem List: (1) Urine retention ICD Codes: R33.9 - Retention of urine, unspecified SNOMED: 728543657 (2) Anemia ICD Codes: D64.9 - Anemia, unspecified SNOMED: 052660798 (3) Malnutrition ICD Codes: E46 - Unspecified protein-calorie malnutrition SNOMED: 10410331 (4) Leukocytosis ICD Codes: D72.829 - Elevated white blood cell count, unspecified SNOMED: 131863101, 382399958 (5) Hematuria ICD Codes: R31.9 - Hematuria, unspecified SNOMED: 44220283 Status: stable, progressing Assessment/Plan: pt diet abx uro f/u dc if clear Subjective Constitutional: Reports: weakness Allergies: Coded Allergies: NO KNOWN DRUG ALLERGIES (Unverified Allergy, Unknown, 01/01/15) All Systems: reviewed and negative except above Subjective sl abd pain Objective Last 24 Hour Vital Signs Date Time Temp Pulse Resp B/P (MAP) Pulse Ox O2 Delivery O2 Flow Rate FiO2 10/01/19 09:00 92 159/85 10/01/19 08:00 98.4 92 18 159/85 (109) 98 10/01/19 04:00 99.1 92 18 153/78 (103) 96 10/01/19 00:00 98.5 90 18 137/70 (92) 98 09/30/19 21:00 Room Air 09/30/19 20:00 98.5 79 20 150/85 (106) 98 09/30/19 16:00 98.4 90 20 147/78 (101) 97 09/30/19 12:00 98.3 87 20 142/75 (97) 97 Intake and Output 09/30/19 10/01/19 19:00 07:00 Intake Total 600 ml Output Total 800 ml 700 ml Balance -800 ml -100 ml Intake Oral 600 ml Output Urine Total 800 ml 700 ml # Bowel Movements 2 1 Laboratory Tests 10/01/19 05:20: White Blood Count 8.3, Red Blood Count 4.18L, Hemoglobin 11.7L, Hematocrit 36.4L , Mean Corpuscular Volume 87, Mean Corpuscular Hemoglobin 28.0, Mean Corpuscular Hemoglobin Concent 32.2, Red Cell Distribution Width 14.2, Platelet Count 284, Mean Platelet Volume 6.3L, Neutrophils (%) (Auto) 66.9, Lymphocytes ( %) (Auto) 22.5, Monocytes (%) (Auto) 8.5, Eosinophils (%) (Auto) 1.5, Basophils (%) (Auto) 0.7, Sodium Level 146H, Potassium Level 4.1, Chloride Level 108H, Carbon Dioxide Level 27, Anion Gap 11, Blood Urea Nitrogen 16, Creatinine 0.8, Estimat Glomerular Filtration Rate > 60, Glucose Level 56L, Calcium Level 9.1 Height (Feet): 5 Height (Inches): 7.00 Weight (Pounds): 162 General Appearance: alert EENT: normal ENT inspection Neck: normal alignment Cardiovascular: normal peripheral pulses, normal rate, regular rhythm Respiratory/Chest: chest wall non-tender, lungs clear, normal breath sounds Abdomen: normal bowel sounds, non tender, soft Extremities: normal inspection Edema: no edema noted Arm (L), no edema noted Arm (R), no edema noted Leg (L), no edema noted Leg (R), no edema noted Pedal (L), no edema noted Pedal (R), no edema noted Generalized Neurologic: responsive, motor weakness Skin: normal pigmentation, warm/dry Objective jo removed Erwin May DO Oct 01, 2019 11:46
[2019-10-01 12:00] VITALS: BP 151/77
--- NOTE | 2019-10-01 12:49 | General Progress Note ---
Progress Note Progress Note [id number] full note dictated Inga Lopes MD Oct 01, 2019 12:49
--- NOTE | 2019-10-01 13:30 | NUR ---
NURSE NOTES: Patient able to void, urine yellow, no blood noted. Refused bladder scan.
--- NOTE | 2019-10-01 13:38 | NUR ---
NURSE NOTES: Patient wants to go AMA, Dr Priest made aware.
[2019-10-01] MEDS ORDERED: Levofloxacin 750mg tab ORAL SCH (13:40)
--- NOTE | 2019-10-01 13:41 | NUR ---
NURSE NOTES: Patient wants to go AMA, Dr May made aware.
--- NOTE | 2019-10-01 14:18 | NUR ---
CASE MANAGEMENT: REVIEW 10/01/19 SI:GROSS HEMATURIA . BLADDER OBSTRUCTION 98.4 92 18 159/85 98% ON RA NA+ 146 CL-108 BG 56 H/H 11.7/36.4 IS: IV DEXTROSE Q30MIN/PRN IV CEFEPIME BID NORVASC PO QD CATAPRES Q6HR/PRN METFORMIN P BIAC FLOMAX PO QHS \: 3E MED SURG UNIT PLAN: PATIENT WANTING TO RETURN HOME PATIENT VOIDING WITH NO SIGN OF HEMATURIA PATIENT REFUSED POST VOID RESIDUAL
--- NOTE | 2019-10-01 15:30 | NUR ---
NURSE NOTES: Patient discharged on AMA, ID band removed, wheeled down to lobby, friend waiting.
--- NOTE | 2019-10-01 18:00 | Consultation ---
DATE OF CONSULTATION: 10/01/2019 NEPHROLOGY CONSULTATION CONSULTING PHYSICIAN: Inga Lopes M.D. REFERRING PHYSICIAN: Erwin May D.O. REASON FOR CONSULTATION: Electrolyte abnormality and possible pyelonephritis. HISTORY OF PRESENT ILLNESS: The patient is a 53-year-old male with past medical history significant for diabetes, hypertension, dyslipidemia, chronic low back pain who presented to [facility] complaining of urinary retention and hematuria. Consequently, the patient had a Espinal catheter placement, found to have gross hematuria, was started on broad spectrum antibiotics for possible pyelonephritis. Found to have hypokalemia, hypernatremia, and electrolyte imbalance. I was called for management of those . PAST MEDICAL HISTORY: Including. 1. Diabetes. 2. Hyperlipidemia. 3. Hypertension. 4. History of chronic low back pain. MEDICATIONS: List was reviewed. ALLERGIES: No known drug allergies. FAMILY HISTORY: Negative. SOCIAL HISTORY: There is no history of tobacco, alcohol, or drug use. REVIEW OF SYSTEMS: GENERAL: He complained of generalized weakness. No fever. No chills. No night sweats. HEAD AND NECK: Denies any dysphagia, odynophagia, blurry vision, headache, or neck stiffness. PULMONARY: Denies any shortness of breath. No cough or sputum. CARDIOVASCULAR: Denies any chest pain or palpitations. GASTROINTESTINAL: Denies any nausea, vomiting, diarrhea, hematemesis, or hematochezia. GENITOURINARY: Complained of frequency and hematuria. MUSCULOSKELETAL: Denies any weakness or numbness. PHYSICAL EXAMINATION: VITAL SIGNS: The patient has temperature of 98 degrees, blood pressure 158/85, pulse rate of 92, saturation of 98. HEAD AND NECK: No JVP. No LAD. No thyromegaly. Extraocular movements intact. Pupils are reactive to light and accommodation. LUNGS: Clear to auscultation. CARDIAC: Regular rate and rhythm. S1-S2. No murmur. No rub. ABDOMEN: Soft, nontender, and nondistended. EXTREMITIES: No edema. No clubbing. No cyanosis. LABORATORY AND DIAGNOSTIC DATA: The patient has sodium of 146, potassium 4.1, chloride 108, bicarb 27, BUN of 16, creatinine of 0.6, and calcium of 9.1. CT of the abdomen revealed perinephric infiltration, possible bacterial pyelonephritis. UA reveals specific gravity of 1.010, protein 4+, ketone 1+, blood 5+, wbc 5 to 10, rbc too many to count. ASSESSMENT: 1. Hypernatremia. 2. Hypokalemia. 3. Hematuria. 4. Proteinuria. 5. Possible pyelonephritis. 6. Rule out diabetic nephropathy. PLAN: Obtain UA. Check the random urine protein creatinine ratio to calculate the proteinuria. Check the urine sodium and creatinine to calculate fractional excretion of sodium. Avoid any NSAID or nephrotoxics. Continue with IV hydration. Check the I's and O's. Monitoring electrolytes closely. Again, I would like to thank, Dr. Erwin May, for allowing me to participate in the care of this patient. Inga Lopes M.D. DR: GHISLAINE JOB#: [id number] CC:
--- NOTE | 2019-10-02 08:22 | Hematology/Onc Progress Note ---
Assessment/Plan Assessment/Plan Assessment/Plan: # Leukocytosis 2 Sepsisfrom uti --> for uti, continue on abx --> peripheral smear has been noted --> labs have been reviewed --> on rocephin --> wbc trend: 12.9 --> positive for septicemia # Anemia of chronic disease v from hematuira --> r/o hemolysis --> no evidence of gi bleed is noted --> transfuse on prn basis --> hgb trend: 11.3 # Hematuria is likely related to UTI --> make sure to draw psa, robinson rn --> r/o jo trauma # Suspected left pyelonephritis/bacterial nephritis. No abscess or evidence of obstructive nephropathy --> on abx # DM --> a1c goal <8% # HTN --> sbp goal 140 # Hyperlipidemia. --> statin as needed ROBINSON Rn and appreciate consultation Subjective Allergies: Coded Allergies: NO KNOWN DRUG ALLERGIES (Unverified Allergy, Unknown, 01/01/15) Subjective 09/29: continues to be confused, no bleeding, on rocephin 09/30: positive for septicemia, ra, no sob, jo 10/01: awake and alert, no acute events, stool ob pending, no sob Objective Objective Last 24 Hour Vital Signs Date Time Temp Pulse Resp B/P (MAP) Pulse Ox O2 Delivery O2 Flow Rate FiO2 10/01/19 12:00 98.1 83 20 151/77 (101) 99 10/01/19 09:00 Room Air 10/01/19 09:00 92 159/85 10/01/19 08:00 98.4 92 18 159/85 (109) 98 10/01/19 04:00 99.1 92 18 153/78 (103) 96 10/01/19 00:00 98.5 90 18 137/70 (92) 98 09/30/19 21:00 Room Air 09/30/19 20:00 98.5 79 20 150/85 (106) 98 09/30/19 16:00 98.4 90 20 147/78 (101) 97 09/30/19 12:00 98.3 87 20 142/75 (97) 97 09/30/19 09:20 101 142/74 09/30/19 09:00 Room Air Intake and Output 10/01/19 10/02/19 19:00 07:00 # Bowel Movements 1 Labs Test 09/30/19 05:26 10/01/19 05:20 White Blood Count 12.9 K/UL (4.8-10.8) 8.3 K/UL (4.8-10.8) Red Blood Count 3.99 M/UL (4.70-6.10) 4.18 M/UL (4.70-6.10) Hemoglobin 11.3 G/DL (14.2-18.0) 11.7 G/DL (14.2-18.0) Hematocrit 33.9 % (42.0-52.0) 36.4 % (42.0-52.0) Mean Corpuscular Volume 85 FL (80-99) 87 FL (80-99) Mean Corpuscular Hemoglobin 28.3 PG (27.0-31.0) 28.0 PG (27.0-31.0) Mean Corpuscular Hemoglobin Concent 33.3 G/DL (32.0-36.0) 32.2 G/DL (32.0-36.0) Red Cell Distribution Width 13.8 % (11.6-14.8) 14.2 % (11.6-14.8) Platelet Count 263 K/UL (150-450) 284 K/UL (150-450) Mean Platelet Volume 7.3 FL (6.5-10.1) 6.3 FL (6.5-10.1) Neutrophils (%) (Auto) 84.0 % (45.0-75.0) 66.9 % (45.0-75.0) Lymphocytes (%) (Auto) 11.1 % (20.0-45.0) 22.5 % (20.0-45.0) Monocytes (%) (Auto) 4.6 % (1.0-10.0) 8.5 % (1.0-10.0) Eosinophils (%) (Auto) 0.0 % (0.0-3.0) 1.5 % (0.0-3.0) Basophils (%) (Auto) 0.3 % (0.0-2.0) 0.7 % (0.0-2.0) Sodium Level 141 MMOL/L (136-145) 146 MMOL/L (136-145) Potassium Level 3.1 MMOL/L (3.5-5.1) 4.1 MMOL/L (3.5-5.1) Chloride Level 104 MMOL/L (98-107) 108 MMOL/L (98-107) Carbon Dioxide Level 26 MMOL/L (21-32) 27 MMOL/L (21-32) Anion Gap 12 mmol/L (5-15) 11 mmol/L (5-15) Blood Urea Nitrogen 12 mg/dL (7-18) 16 mg/dL (7-18) Creatinine 0.6 MG/DL (0.55-1.30) 0.8 MG/DL (0.55-1.30) Estimat Glomerular Filtration Rate > 60 mL/min (>60) > 60 mL/min (>60) Glucose Level 98 MG/DL (74-106) 56 MG/DL (74-106) Calcium Level 9.0 MG/DL (8.5-10.1) 9.1 MG/DL (8.5-10.1) Height (Feet): 5 Height (Inches): 7.00 Weight (Pounds): 162 Objective Physical Exam General Appearance: lethargic Lines, tubes and drains: central line HEENT: atraumatic Neck: supple Respiratory/Chest: normal breath sounds Cardiovascular/Chest: normal rate Abdomen: non tender, soft Extremities: normal inspection Skin Exam: warm/dry Neurologic: no motor/sensory deficits : ++ Og Valdes MD Oct 02, 2019 08:22
--- NOTE | 2019-10-03 15:26 | Discharge Summary ---
Discharge Summary Discharge Summary _ DATE OF ADMISSION: 09/28/2019 DATE OF DISCHARGE: 10/01/2019 DISCHARGED BY: Dr. Erwin May CONSULTANTS: Dr. Og Reyes BRIEF HOSPITAL COURSE: Patient is a 58-year-old male, who presented to the hospital due to gross hematuria as well as lower abdominal pain. Patient reporting gradual onset of increased bleeding with urination. He had been unable to void for several hours. He denied taking any anticoagulation. Denied history of prostate disease. He denied any recent catheterization. He had not been on any antibiotics recently. Upon evaluation at the ED, blood work showed WBC elevated to 17. Hemoglobin 12 and hematocrit 35. Electrolytes normal. Liver kidney function normal. Urinalysis showed negative leukocyte esterase, too numerous to count urine RBC, 5-10 urine WBC. Espinal catheter was inserted and was irrigated. Patient was then admitted for evaluation of hematuria. Urologist was consulted. CT scan showed left-sided pyelonephritis. He was given Flomax and finasteride. Patient was started on IV antibiotics by ID. Patient was recommended to have outpatient cystoscopy. CT scan of the head showed sinusitis. Blood culture showed growth of Klebsiella. Rocephin was changed to cefepime and later on to Levaquin. Urine culture did not isolate any growth. Leukocytosis resolved. Hemoglobin level stable. Espinal catheter was discontinued. Patient was able to void, however refused post void bladder scan. Patient was discharged home. FINAL DIAGNOSES: Sepsis from UTI Urinary retention Anemia Suspected left pyelonephritis/bacterial nephritis Diabetes mellitus Hypertension Hyperlipidemia Hyponatremia Hypokalemia Proteinuria Malnutrition DISPOSITION: Patient was discharged home. ReportedDISCHARGE INSTRUCTIONS: Follow-up in a week. I have been assigned to complete a discharge summary on this account, I was not involved with the patient's management.--POOJA Viera Jacqueline Robles NP Oct 03, 2019 15:26
--- NOTE | 2019-10-04 15:59 | NUR ---
*-* INSURANCE *-* DISCHARGE SUMMARY HAS BEEN FAXED TO: [facility]:STEPHANIE AUTH#[id number] P: [phone] F: [phone]
== END 2019-10-01 15:45 | disposition home or self-care (01) | DRG 872 ==
LOC: EMR 03:55 → 3E 06:22 → EDBEDREQ 09:24 → SDSOVERFLO 09-30 10:15 → 3E 09-30 10:17 → SDSOVERFLO 09-30 10:34 → 3E 09-30 10:35
DX: A41.9 Sepsis, unspecified organism (principal); N12 Tubulo-interstitial nephritis, not specified as acute or chronic; E46 Unspecified protein-calorie malnutrition; I10 Essential (primary) hypertension; E11.9 Type 2 diabetes mellitus without complications; R33.9 Retention of urine, unspecified; E87.6 Hypokalemia; F17.200 Nicotine dependence, unspecified, uncomplicated; E78.5 Hyperlipidemia, unspecified; R31.0 Gross hematuria
CPT/HCPCS: 36415; 70450; 74177; 80048; 80053; 81001; 82140; 82378; 82607; 82728; 82962; 83036; 83540; 83550; 83605; 84153; 84443; 85007; 85025; 85044; 85060; 85610; 85730; 86300; 87040; 87086; 87181; 96374; 96376; 99285; J1815; J7030